=== PATIENT | male | born 1955 | race Caucasian/White ===

== ENCOUNTER 2023-08-11 08:25 | Inpatient (IN) | payer MEDICARE, SELFPAY ==
[2023-08-11] VITALS (10 sets, daily range): BP systolic 122–157; BP diastolic 39–67; BMI 26.0
--- NOTE | 2023-08-11 09:53 | HPS.HSE ---
Family Physician
-
Family Physician: None
Video Systems Engineer: None
Chief Complaint
-
Shortness of breathe
History of Present Illness
68-year-old male with past medical history of PAD status post right lower extremity grafting in 2014 presented initially to [facility] with shortness of breath, dry cough, lower extremity edema, and fatigue. He states that the dyspnea has
been associated with a nonproductive cough and has been intermittent ever since a COVID infection last year however it has been worsening in the past several weeks and that is why he went to the hospital. While at [facility] they did an
echocardiogram which showed severe AR with moderate aortic stenosis and a dilated ascending thoracic aorta of 6.1 cm. At that time his left ventricular ejection fraction was 40% with global LV hypokinesis and prominent apical hypokinesis. Patient
also received a right and left heart cath. At the time of the right heart cath cardiac output was 4.2 L/min and cardiac index was 1.92 L/min/m�, wedge was 17 mmHg, PA pressure was 34/8 with a mean of 23, RA pressure was 10. Incidentally there was
a 90% stenosis of the right axillary artery found and the left heart cath did not reveal significant coronary artery disease. Patient was transferred to [facility] for CT surgery evaluation.
Medical History
Past Medical History
Past Medical History: Reports Other
Additional Past Medical History:
PAD s/p right lower extremity grafting by Dr. David Mckeon in 2014
Past Surgical History: Reports Other
Social History
Tobacco: Former Smoker (quit in 2015 ('5 tiny cigerettes a day'))
Alcohol: Daily (3/day)
Drug: Former User (marijuana as a kid)
Personal:
Living: With Family
Employment: Retired
Family History
Family History: Cancer
Allergies / Home Medications
Allergies reflects when Allergies were last updated in [employer].
Home Medications with original date entered in [employer]
Allergy/Medication List:
none.
Review of Systems
-
History Source: Patient
Constitutional: Reports Weight Gain and Fatigue
Respiratory: Reports Cough
Cardiac: Reports No Symptoms
Musculoskeletal: Reports Edema
Skin: Reports No Symptoms
Neurological: Reports No Symptoms
Endocrine: Reports No Symptoms
Hematologic/Lymphatic: Reports No Symptoms
Psych: Reports No Symptoms
Physical Exam
Vital Signs
Vital Signs
Temp Resp Pulse Ox
97.2 F 18 98
08/11/23 08:37 08/11/23 08:37 08/11/23 08:37
Physical Exam
General: Well Developed and Well Nourished
HEENT: NormoCephalic, PERRLA and [place] Conjunctivae
Respiratory: Clear
Cardiac: S1/S2
Breast: Deferred by me
GI: Soft and Non Tender
Rectal: Deferred by Provider
Genito-urinary: Deferred by me
Musculoskeletal: Edema, Left Lower Extremity and Edema, Right Lower Extremity
Skin: Warm and Dry
Neuro: AO x 3
Hematologic/Lymphatic: No Lymphadenopathy
Psych: Calm
Impression/Plan
-
IMPRESSION:
68-year-old male with past medical history listed above was found to have severe aortic insufficiency and was transferred to [facility] for CT surgery evaluation.
PLAN:
# Severe aortic regurgitation
-Patient's case will be discussed with attending physician. Further details regarding surgical timing intervention will be determined after attending physicians full evaluation.
-Routine preoperative cardiothoracic surgery orders will be initiated.
-STS risk stratification score will be calculated after preoperative testing is complete
# Right subclavian artery stenosis
-Currently asymptomatic
-Will assess bilateral blood pressures
-Low threshold for vascular consult
[2023-08-11 10:51] LABS: % Basophils 1.2 % (0-2); % Eosinophils 1.3 % (0-6); % Immature Granulocytes 0.3 % (0-0.5); % Lymphocytes 19.9 % (20.5-51.1); % Monocytes 7.5 % (1.7-9.3); % Neutrophils 69.8 % (42.2-75.2); Absolute Basophils 0.1 10^3/uL (0-0.2); Absolute Eosinophils 0.1 10^3/uL (0-0.7); Absolute Lymphocytes 1.5 10^3/uL (1.2-3.4); Absolute Monocytes 0.6 10^3/uL (0.1-0.6); Absolute Neutrophils 5.4 10^3/uL (1.4-6.5); Hemoglobin 14.4 g/dL (13.0-18.0); Mean Corp Hgb Conc. 34.3 g/dL (33.0-37.0); Mean Corpuscular Hgb 30.8 pg (27.0-31.0); Mean Corpuscular Volume 89.7 fL (80.0-94.0); Mean Platelet Volume 9.4 fL (7.4-10.4); Nucleated Red Blood Cells % 0 % (-); Platelet Count 247 10^3/uL (130-400); Red Blood Cell Count 4.68 10^6/uL (4.70-6.10); Red Cell Dist. Width 14.1 % (11.5-14.5); White Blood Cell Count 7.7 10^3/uL (4.8-10.8)
[2023-08-11 10:56] LABS: APTT 25.2 Sec (23.4-35.0); INR 1.11; PT 14.4 Sec (11.4-14.6)
[2023-08-11 11:01] LABS: ALT (SGPT) 55 U/L (0-50); AST (SGOT) 38 U/L (17-59); Albumin 4.3 g/dl (3.5-5.0); Alkaline Phosphatase 85 U/L (38-126); Blood Urea Nitrogen 30 mg/dl (9-20); Calcium 9.6 mg/dl (8.4-10.2); Carbon Dioxide 27 mmol/L (22-30); Chloride 103 mmol/L (98-107); Estimated Creatinine Clearance 41 ml/min; Glucose 106 mg/dl (70-99); Magnesium 2.1 mg/dl (1.6-2.3); Potassium 3.7 mmol/L (3.5-5.1); Sodium 135 mmol/L (135-145); Total Bilirubin 1.5 mg/dl (0.2-1.3); Total Protein 6.9 g/dl (6.3-8.2); eGFR 37.95
--- NOTE | 2023-08-11 13:30 | CM ---
Reviewed chart. Met with and Mrs. Nair and his daughter to review discharge plans. He states prior to admission he resides with his spouse in a one story home with three steps to enter. He states prior to admission he was independent with
ambulation and adls. He stats he does not have any DME in the home. He states he does not have a prescription plan. Medical work-up in progress. The discharge plan is to return home with his spouse and a home visit by the Cardiothoracic
Transitional Care Nurse when medically stable.
--- NOTE | 2023-08-11 13:30 | CON.CAR ---
Addendum entered and electronically signed by Ervin Valencia MD 08/11/23 14:04:
correction below . I reviewed the echo images. valve appears trileaflet but may have fusion of the left and NCC leaflets.
Original Note:
Consultation
Consultation Request
Date/Time Consultation Requested: 08/11/2023 1330
Date/Time Consultation Performed: 08/11/2023 1330
Requesting Provider: Dr. Pulido
Performing Provider: Dr. Valencia
Reason for Consultation: /AR
Medical History
-
History of Present Illness:
68-year-old male who presents as a transfer from [facility]. Patient is a history of peripheral arterial disease. He presented with shortness of breath and CHF. Patient has noted to have moderate to severe aortic regurgitation, moderate aortic stenosis,
bicuspid aortic valve, cardiomyopathy with ejection fraction 40 to 45% and ascending aortic aneurysm 6.1 cm. Transferred for cardiothoracic surgery. Patient under the care of Dr. Pulido. Of note patient had cardiac catheterization and reportedly
has no obstructive coronary artery disease
Past medical history
Peripheral arterial disease and previous right lower extremity
Revascularization
Smoking. Quit in 2014
ECG sinus rhythm LVH, IVCD borderline first-degree block
CT of the chest had soft tissue attenuation nodule in the left kidney measuring 2 cm which may represent mass versus proteinaceous cyst. Correlation with ultrasound or MRI recommended predominant right-sided pericardial effusion coronary
calcification right upper lobe lung nodule mild bilateral lower lobe bronchiectasis small left pleural effusion aneurysm of the thoracic aorta 6 x 6.3 cm
Cardiac catheterization/ PA pressure 17 cardiac output 4.2 index 1.92 PA pressure 34/8 mean aortic gradient 14.6 calculated aortic valve area 1.45 ventriculogram not performed 97% stenosis of the right axillary artery no significant coronary
artery disease
Past Medical History
Past Medical History: Other (As noted above)
Social History
Tobacco: Former Smoker
Family History
Family History: CAD (Negative for CAD)
Allergies / Home Medications
Allergy/AdvReac Type Severity Reaction Status Date / Time
No Known Allergies Allergy Verified 08/11/23 09:33
�Medication �Instructions �Recorded �Confirmed �Type
No Meds [No Current Medications] 08/11/23 08/11/23 History
Review of Systems
-
All other systems: Negative unless noted
Physical Exam
Vital Signs
Temp Pulse Resp BP Pulse Ox
97.2 F 65 18 157/56 98
08/11/23 08:37 08/11/23 11:45 08/11/23 08:37 08/11/23 08:32 08/11/23 08:37
Lab Results
08/11/23 10:37
08/11/23 10:37
Physical Exam
General: Well Developed
HEENT: Normocephalic
Respiratory: Clear
Cardiac: Regular Rhythm, Murmur (2/6 systolic murmur. And a low pitched diastolic murmur) and Other
GI: Soft, Non Distended, Normal Bowel Sounds and Other (No mass no Passman megaly)
Musculoskeletal: No Clubbing and No Cyanosis
Neuro: Awake, Alert and No Motor Deficits
Hematologic/Lymphatic: No Lymphadenopathy
Impression / Plan
-
Left heart failure. Patient admitted to [place] with left heart failure and was noted to have cardiomyopathy with ejection fraction 40 to 45%, moderate to severe aortic regurgitation and moderate aortic stenosis
-Respiratory status currently stable. Continue current therapies patient\\
.
Aortic valve disease. Patient with bicuspid aortic valve combination of aortic regurgitation, aortic stenosis. In addition patient has thoracic aortic aneurysm.
-Patient being evaluated for aortic valve replacement and treatment of aneurysm.
.
Thoracic aortic aneurysm 6.[address] surgery evaluation
.
Nonischemic cardiomyopathy. Ejection fraction 40 to 45%
PAD. Patient with history of PAD and also noted to have right axillary stenosis when he underwent catheterization.
Data Reviewed
-
EKG: Tracing Personally Visualized and interpreted and Report Reviewed by me
Radiology: Report Reviewed by me
Ultrasound: Report Reviewed by me
MRI: Report Reviewed by me
Medical Tests (Nuc Med, Echo etc): Report Reviewed by me
Labs: Labs Reviewed by me and Discussed with Physician
[2023-08-11 14:33] LABS: Glycohemoglobin (HgbA1c) 5.6 % (4.0-5.6)
[2023-08-11] MEDS: COREG 6.25 MG PO (19:46)
--- NOTE | 2023-08-11 22:20 | PTCARENOTE ---
POC discussed Pt verbalized understanding. VSS- ambulating as a self. SR w/ first degree and BBB. no complaints of SOB or CP. Call gallegos within reach.
[2023-08-12] VITALS (8 sets, daily range): BP systolic 139–149; BP diastolic 53–69; BMI 26.2
[2023-08-12 05:24] LABS: Hematocrit 42.9 % (39.0-52.0); Hemoglobin 14.4 g/dL (13.0-18.0); Mean Corp Hgb Conc. 33.6 g/dL (33.0-37.0); Mean Corpuscular Volume 92.3 fL (80.0-94.0); Mean Platelet Volume 9.2 fL (7.4-10.4); Platelet Count 233 10^3/uL (130-400); Red Blood Cell Count 4.65 10^6/uL (4.70-6.10); Red Cell Dist. Width 13.7 % (11.5-14.5); White Blood Cell Count 7.5 10^3/uL (4.8-10.8)
--- NOTE | 2023-08-12 05:26 | W.PN.CT ---
Addendum entered and electronically signed by Franck Pulido MD 08/12/23 08:26:
CARDIAC SURGERY ATTENDING:
I had a long conversation with Mr. Nair and his family at bedside. We discussed his pathology, the proposed operative interventions, the associated operative risks [including, but not limited to, , stroke, ND, PPM requirement, arrhythmia,
pneumonia, NERY/F, bleeding, and infection], the expected in-hospital postoperative course, and expected outpatient recovery. All questions were answered to the best of my abilities. We also discussed the natural history of structural valve
deterioration.
Given his baseline CKD with creatinine of 1.9 (down to 1.8 today) only a noncontrast chest CT has been obtained. Based on available imaging it is not clear whether he will require a full aortic root/ascending replacement or if an AVR with
concurrent ascending replacement will be sufficient. Final decision will be based on intraoperative JEREMIAH and visual assessment of his aortic root size. A biologic AVR will be utilized. His distal ascending aorta and aortic arch are not aneurysmal,
and there appears to be adequate distal ascending aorta to allow for replacement without the need for the DHCA.
Preoperative workup is ongoing. His case has been tentatively scheduled for this coming 08/15/2023.
Original Note:
Today's Communication / Plan
-
-pt has no complaints, ambulates without difficulty
-fluid status appears stable at this time. No sob or edema
-workup for AVR/Asc Ao root replacement is ongoing
-no drips
-tentative plan for OR on Tuesday with Dr. Pulido
Assessment / Plan
-
IMPRESSION:
-68-year-old male with past medical history listed above was found to have severe aortic insufficiency/mod and dilated Asc Ao 6.1 cm and was transferred to [facility] on 08/[address] surgery evaluation.
-left ventricular ejection fraction was 40% with global LV hypokinesis and prominent apical hypokinesis.
-s/p right and left heart cath. Cardiac output was 4.2 L/min and cardiac index was 1.92 L/min/m�, wedge was 17 mmHg, PA pressure was 34/8 with a mean of 23, RA pressure was 10. Incidentally there was a 90% stenosis of the right axillary artery
found and the left heart cath did not reveal significant coronary artery disease.
-PAD, R subclavian artery stenosis
-RLE grafting 2014
-Covid 2022
-Dental caries and hardware noted on Panelipse 08/11/23
Discussed patient care with: Nursing and Care Team
Subjective
-
Date of Service: August 12, 2023
Objective Data
-
PT 14.4 Sec (11.4-14.6) 08/11/23 10:37
INR 1.11 08/11/23 10:37
APTT 25.2 Sec (23.4-35.0) 08/11/23 10:37
Vital Signs
Vital Signs
Temp Pulse Resp BP Pulse Ox
98.2 F 64 20 132/47 98
08/11/23 23:32 08/11/23 22:00 08/11/23 23:32 08/11/23 23:34 08/11/23 23:32
SaO2: 98
Physical Exam
-
General: Awake and AOx3
Cardiovascular: Regular rate & rhythm and Murmur (2/6 systolic @ lsb)
Respiratory: Clear
Extremities: No Edema
Abdomen: soft, nontender, nondistended
Data Reviewed
-
Lab Results: Results Reviewed
Medications: Active Meds Reviewed
Chest X-Ray: Report Reviewed and Image Reviewed
ECG: Report Reviewed and Image Reviewed
[2023-08-12 05:33] LABS: PT 14.2 Sec (11.4-14.6)
[2023-08-12 05:34] LABS: APTT 26.9 Sec (23.4-35.0)
[2023-08-12 05:49] LABS: ALT (SGPT) 43 U/L (0-50); AST (SGOT) 35 U/L (17-59); Albumin 4.1 g/dl (3.5-5.0); Alkaline Phosphatase 81 U/L (38-126); Blood Urea Nitrogen 30 mg/dl (9-20); Calcium 9.5 mg/dl (8.4-10.2); Carbon Dioxide 25 mmol/L (22-30); Chloride 99 mmol/L (98-107); Direct Bilirubin 0.4 mg/dl (0.0-0.4); Estimated Creatinine Clearance 43 ml/min; Glucose 106 mg/dl (70-99); Potassium 3.7 mmol/L (3.5-5.1); Sodium 135 mmol/L (135-145); Total Bilirubin 1.2 mg/dl (0.2-1.3); Total Protein 6.7 g/dl (6.3-8.2); eGFR 40.49
[2023-08-12] MEDS: COREG 6.25 MG PO ×2 (09:06→20:42)
[2023-08-12] MEDS: LOW STRENGTH ASPIRIN 81 MG PO (09:06)
[2023-08-12] MEDS: NORVASC 2.5 MG PO (09:10)
--- NOTE | 2023-08-12 09:34 | PTCARENOTE ---
Pt c/o 2 out of 10 'chest ache' since this morning. Pt states that he finds it difficult to take a deep breath. VSS. Will notify
--- NOTE | 2023-08-12 10:36 | W.PN.OMFS ---
Today's Communication
-
XXX
Assessment / Plan
-
PATIENT IS CLEARED FOR VALVULAR HEART SURGERY
NO ACUTE DISEASE
MUST, MUST FOLLOW WITH A OMFS AFTER VALVE REPLACEMENT FOR DIRECTED RX IWTH APPROPRIATE ANTIBIOTIC COVERAGE.
THIS WAS REVIEWED WITH PATIENT
FORMAL CONSULT DICTATED
RICHARD CARBAJAL, ZACHERY
OMFS [id number]
Subjective Data
-
OMFS EVAL FOR DENTAL CLEARANCE FOR AORTIC VALVE SURGERY
Objective Data
-
Vitals, I&O and Lab Results:
Vital Signs
Temp Pulse Resp BP Pulse Ox
97.8 F 69 18 149/66 97
08/12/23 06:43 08/12/23 09:10 08/12/23 06:43 08/12/23 09:10 08/12/23 06:43
Intake and Output
08/11/23 08/12/23 08/13/23
06:59 06:59 06:59
Intake Total 480 / 480
Balance 480 / 480
Intake:
Oral fluids 480 / 480
Other:
Number of approximated MODERATE 2
amounts of urine
Lab Data
08/12/23 05:00
08/12/23 05:00
Plt Count 233 10^3/uL (130-400) 08/12/23 05:00
Physical Exam
-
MULTIPLE CARIOUS TEETH
PERIODONTAL AND PERIAPICAL CHRONIC DISEASE ON ABDALLA
NO ACUTE EVIDENCE OF DISEASE
NO PAIN, PURULENCE, SWELLING, FEVER
PANORAMIC RADIOGRAPH CONFIRMS FINDINGS
--- NOTE | 2023-08-12 10:40 | CM ---
Reviewed chart. Met with and Mrs. Nair to review discharge plans. Prior to admission he resides with his spouse in a one story home with three steps to enter. Prior to admission he was independent with ambulation and adls. He does not
have any DME in the home. He does not have a prescription plan. His spouse will be home to assist in his care if needed. Medical work-up in progress. The discharge plan is to return home with his spouse and a home visit by the Cardiothoracic
Transitional Carre Nurse when medically stable.
We reviewed pre-op and post-op routines. We briefly reviewed the shower instructions. We also reviewed sternal precautions and driving restrictions. He has the Cardiothoracic Surgery Educational Booklet. We discussed a home visit by the
Cardiothoracic Transitional Care Nurse. He is agreeable to a home visit. The plan is to for AVR on Tuesday.
[2023-08-12 10:57] LABS: Urine Albumin Trace (Neg - Trace); Urine Bilirubin 1+ (Negative); Urine Character Clear (Clear); Urine Color Yellow; Urine Glucose Negative (Negative); Urine Ketone Trace (Negative); Urine Leukocyte Negative (Negative); Urine Nitrite Negative (Negative); Urine Occult Blood Negative (Negative); Urine Urobilinogen 2+ (Neg - 1+)
--- NOTE | 2023-08-12 12:46 | W.PN.CD ---
Today's Communication / Plan
-
Patient is ambulating in hallway without complaints of increased shortness of breath. He does have a dry cough. No orthopnea or edema.
Check chest x-ray. May consider additional use of diuretic.
Continued preoperative assessment by CT surgery.
Monitor creatinine
Impression / Plan
-
Left heart failure. Patient admitted to [place] with left heart failure and was noted to have cardiomyopathy with ejection fraction 40 to 45%, moderate to severe aortic regurgitation and moderate aortic stenosis
-Respiratory status currently stable.
-Dry cough.
-Check chest x-ray. May consider additional diuretic
.
Aortic valve disease. Patient with bicuspid aortic valve combination of aortic regurgitation, aortic stenosis. In addition patient has thoracic aortic aneurysm.
-Patient being evaluated for aortic valve replacement and treatment of aneurysm.
.
Thoracic aortic aneurysm 6.[address] surgery evaluation
.
Nonischemic cardiomyopathy. Ejection fraction 40 to 45%
PAD. Patient with history of PAD and also noted to have right axillary stenosis when he underwent catheterization.
Renal insufficiency. Creatinine 1.8. Continue to monitor.
Physical Exam
Vital Signs/Labs
Vital Signs
Temp Pulse Resp BP Pulse Ox
97.2 F 68 16 149/66 98
08/12/23 11:14 08/12/23 11:14 08/12/23 11:14 08/12/23 09:10 08/12/23 11:14
08/11/23 08/12/23 08/13/23
06:59 06:59 06:59
Actual Weight 87.6 kg
08/12/23 05:00
08/12/23 05:00
PT 14.2 Sec (11.4-14.6) 08/12/23 05:00
INR 1.10 08/12/23 05:00
APTT 26.9 Sec (23.4-35.0) 08/12/23 05:00
Magnesium 2.1 mg/dl (1.6-2.3) 08/11/23 10:37
Physical Exam
Constitutional: No acute distress
Cardiovascular: Rhythm & rate is regular and Other (2/6 systolic murmur. Low pitched diastolic murmur)
Respiratory: Lungs clear to auscul.
GI: Soft
Neuro/Psych: Alert
Data Reviewed
-
Date of Service: August 12, 2023
EKG: Report Reviewed by me
X-Ray/CT/US/MRI/NUC/PET: Report Reviewed by me
Medical Tests (PFT, Pathology etc): Report Reviewed by me
Labs: Labs Reviewed by me
[2023-08-13] VITALS (8 sets, daily range): BP systolic 145–171; BP diastolic 54–67; BMI 26.4
--- NOTE | 2023-08-13 01:47 | W.PN.CT ---
Addendum entered and electronically signed by Franck Pulido MD 08/13/23 09:05:
OR TUESDAY
Original Note:
Today's Communication / Plan
-
-c/o dry cough- cxr is clear
-follow Cr
-cleared by Dental for valve surgery
-appreciate everyone's input
-tentative plan for OR on 08/14
Assessment / Plan
-
IMPRESSION:
-bicuspid AV with severe aortic insufficiency/mod and dilated Asc Ao 6.1 cm
-non-ischemic cardiomyopathy, LVEF 40-45% with global LV hypokinesis and prominent apical hypokinesis.
-s/p right and left heart cath with no significant CAD. Cardiac output was 4.2 L/min and cardiac index was 1.92 L/min/m�, wedge was 17 mmHg, PA pressure was 34/8 with a mean of 23, RA pressure was 10. Incidentally there was a 90% stenosis of the
right axillary artery found
-PAD, s/p RLE grafting 2014
-Covid 2022
-CKD 3a, Cr 1.8
-dental caries and hardware noted on Panelipse 08/11/23- cleared for valve surgery
-dry cough- cxr ok
Discussed patient care with: Nursing and Care Team
Subjective
-
Date of Service: August 13, 2023
Objective Data
-
Lab Results
08/12/23 05:00
08/12/23 05:00
PT 14.2 Sec (11.4-14.6) 08/12/23 05:00
INR 1.10 08/12/23 05:00
APTT 26.9 Sec (23.4-35.0) 08/12/23 05:00
Vital Signs
Vital Signs
Temp Pulse Resp BP Pulse Ox
98.4 F 56 20 149/54 100
08/12/23 23:10 08/13/23 01:00 08/12/23 23:10 08/12/23 22:33 08/12/23 23:10
CT Intake/Output/Weight
08/12/23 08/12/23 08/13/23
06:59 18:59 06:59
Intake Total 480 / 480
Output Total 300 / 300
Balance 480 / 480 -300 / -300
SaO2: 100
--- NOTE | 2023-08-13 03:05 | PTCARENOTE ---
Pt rec'd at shift change awake,alert denies cp. pt's only complaint is not being able to have a bowel movement which he blames on getting interrupted by family or nursing. Sinus on telemetry. + dry cough noted in beginning of shift only.
--- NOTE | 2023-08-13 08:45 | W.PN.CD ---
Today's Communication / Plan
-
Weight is trending up patient has dry cough. Added Lasix 20 mg today. Monitor renal function.
Check renal profile today and tomorrow and follow creatinine.
Continue to treat hypertension. Reassess blood pressure after morning meds if still elevated would give additional amlodipine.
Impression / Plan
-
Left heart failure. Patient admitted to [place] with left heart failure and was noted to have cardiomyopathy with ejection fraction 40 to 45%, moderate to severe aortic regurgitation and moderate aortic stenosis
-Respiratory status currently stable.
-Dry cough.
-Check chest x-ray. Unremarkable.
-Weight will trend up will give dose of Lasix today. Monitor renal function
.
Hypertension-elevated. Amlodipine was added yesterday. Continue to monitor after morning dose. Can increase to 5 mg daily
.
Aortic valve disease. Patient with bicuspid aortic valve combination of aortic regurgitation, aortic stenosis. In addition patient has thoracic aortic aneurysm.
-Patient being evaluated for aortic valve replacement and treatment of aneurysm.
.
Thoracic aortic aneurysm 6.[address] surgery evaluation
.
Nonischemic cardiomyopathy. Ejection fraction 40 to 45%
PAD. Patient with history of PAD and also noted to have right axillary stenosis when he underwent catheterization.
Renal insufficiency. Creatinine 1.8. Continue to monitor.
Physical Exam
Vital Signs/Labs
Vital Signs
Temp Pulse Resp BP Pulse Ox
98.0 F 66 18 170/54 98
08/13/23 07:30 08/13/23 08:00 08/13/23 07:30 08/13/23 07:57 08/13/23 07:30
08/12/23 08/13/23 08/14/23
06:59 06:59 06:59
Actual Weight 87.6 kg 88.1 kg
08/12/23 05:00
PT 14.2 Sec (11.4-14.6) 08/12/23 05:00
INR 1.10 08/12/23 05:00
APTT 26.9 Sec (23.4-35.0) 08/12/23 05:00
Magnesium 2.1 mg/dl (1.6-2.3) 08/11/23 10:37
Physical Exam
Constitutional: No acute distress
EENT: Anicteric
Cardiovascular: Rhythm & rate is regular
Respiratory: Respiratory effort normal
GI: Soft
Neuro/Psych: Alert
Data Reviewed
-
Date of Service: August 13, 2023
EKG: Report Reviewed by me
X-Ray/CT/US/MRI/NUC/PET: Report Reviewed by me
Medical Tests (PFT, Pathology etc): Image Personally Visualized and interpreted
Labs: Labs Reviewed by me
[2023-08-13] MEDS: NORVASC 2.5 MG PO ×2 (08:58→10:06)
[2023-08-13] MEDS: MIRALAX 17 GRAMS PO (08:58)
[2023-08-13] MEDS: LASIX 20 MG PO (08:58)
[2023-08-13] MEDS: SENOKOT-S 1 TABLET PO (08:59)
[2023-08-13] MEDS: LOW STRENGTH ASPIRIN 81 MG PO (08:59)
[2023-08-13] MEDS: COREG 6.25 MG PO ×2 (08:59→19:24)
[2023-08-13 11:00] LABS: Albumin 3.9 g/dl (3.5-5.0); Blood Urea Nitrogen 28 mg/dl (9-20); Calcium 9.2 mg/dl (8.4-10.2); Carbon Dioxide 20 mmol/L (22-30); Chloride 104 mmol/L (98-107); Estimated Creatinine Clearance 52 ml/min; Glucose 112 mg/dl (70-99); Phosphorus 4.2 mg/dl (2.5-4.5); Potassium 4.3 mmol/L (3.5-5.1); Sodium 132 mmol/L (135-145)
--- NOTE | 2023-08-13 19:34 | PTCARENOTE ---
Pt happy to have a BM. Pt denies any discomfort, resting in bed and walking in halls. Pt reports frequent coughing made worse as he practices incentive spirometry( he states he has had a cough for 6 months). Telemetry shows sinus rhythm.
--- NOTE | 2023-08-13 21:32 | PTCARENOTE ---
Pt received start of shift HR SR w/ BBB. Pt denies any CP, SOB, or lightheadedness/dizziness. Informed to notify RN if any changes, call gallegos within reach.
[2023-08-14] VITALS (8 sets, daily range): BP systolic 137–169; BP diastolic 54–82; BMI 26.5
[2023-08-14 04:18] LABS: Hematocrit 41.9 % (39.0-52.0); Hemoglobin 14.5 g/dL (13.0-18.0); Mean Corp Hgb Conc. 34.6 g/dL (33.0-37.0); Mean Corpuscular Hgb 31.7 pg (27.0-31.0); Mean Corpuscular Volume 91.5 fL (80.0-94.0); Mean Platelet Volume 9.4 fL (7.4-10.4); Platelet Count 213 10^3/uL (130-400); Red Blood Cell Count 4.58 10^6/uL (4.70-6.10); Red Cell Dist. Width 13.5 % (11.5-14.5); White Blood Cell Count 7.2 10^3/uL (4.8-10.8)
[2023-08-14 04:43] LABS: Albumin 4.1 g/dl (3.5-5.0); Blood Urea Nitrogen 29 mg/dl (9-20); Calcium 9.4 mg/dl (8.4-10.2); Carbon Dioxide 27 mmol/L (22-30); Chloride 102 mmol/L (98-107); Estimated Creatinine Clearance 49 ml/min; Glucose 101 mg/dl (70-99); Phosphorus 3.9 mg/dl (2.5-4.5); Potassium 4.3 mmol/L (3.5-5.1); Sodium 134 mmol/L (135-145); eGFR 46.64
--- NOTE | 2023-08-14 06:12 | W.PN.CT ---
Addendum entered and electronically signed by DANNY Buenrostro 08/15/23 15:42:
[facility] QUERY RESPONSE
Transferred with acute systolic heart failure
Addendum entered and electronically signed by Franck Pulido MD 08/14/23 09:29:
I saw and examined the patient.
The PA's note was reviewed and I agree with the note.
Comment:
OR TOMORROW
Original Note:
Today's Communication / Plan
-
-no issues overnight
-dry cough as before, no SOB or nocturnal dyspnea
-hypertensive - Norvasc was increased to 5 mg and started on 20 po Lasix on 08/12
-plans for OR Tuesday
Assessment / Plan
-
IMPRESSION:
-bicuspid AV with severe aortic insufficiency/mod and dilated Asc Ao 6.1 cm
-non-ischemic cardiomyopathy, LVEF 40-45% with global LV hypokinesis and prominent apical hypokinesis.
-s/p right and left heart cath with no significant CAD. Cardiac output was 4.2 L/min and cardiac index was 1.92 L/min/m�, wedge was 17 mmHg, PA pressure was 34/8 with a mean of 23, RA pressure was 10. Incidentally there was a 90% stenosis of the
right axillary artery found
-PAD, s/p RLE grafting 2014
-Covid 2022
-CKD 3a, Cr 1.8
-dental caries and hardware noted on Panelipse 08/11/23- cleared for valve surgery
-dry cough- cxr ok
Discussed patient care with: Nursing and Care Team
Subjective
-
Date of Service: August 14, 2023
Objective Data
-
Lab Results
08/14/23 04:05
08/14/23 04:05
PT 14.2 Sec (11.4-14.6) 08/12/23 05:00
INR 1.10 08/12/23 05:00
APTT 26.9 Sec (23.4-35.0) 08/12/23 05:00
Vital Signs
Vital Signs
Temp Pulse Resp BP Pulse Ox
97.5 F 68 18 169/72 100
08/14/23 03:58 08/14/23 04:00 08/14/23 03:58 08/14/23 03:58 08/14/23 03:58
CT Intake/Output/Weight
08/13/23 08/13/23 08/14/23
06:59 18:59 06:59
Intake Total 180 / 660 480 / 660
Balance 180 / 660 480 / 660
SaO2: 100
Physical Exam
-
General: Awake and AOx3
Cardiovascular: Murmur (2/6 systolic @ Lsb)
Respiratory: Clear
Extremities: No Edema
Data Reviewed
-
Lab Results: Results Reviewed
Chest X-Ray: Report Reviewed and Image Reviewed
ECG: Report Reviewed and Image Reviewed
[2023-08-14] MEDS: LASIX 20 MG PO (07:53)
[2023-08-14] MEDS: COREG 6.25 MG PO ×2 (07:54→20:03)
[2023-08-14] MEDS: LOW STRENGTH ASPIRIN 81 MG PO (07:54)
[2023-08-14] MEDS: NORVASC 10 MG PO (07:57)
--- NOTE | 2023-08-14 09:52 | W.PN.CD ---
Today's Communication / Plan
-
Respiratory status is stable.
Continue treatment of hypertension
Scheduled for surgery for AR/ and aortic aneurysm tomorrow
Impression / Plan
-
Left heart failure. Patient admitted to [facility] with left heart failure and was noted to have cardiomyopathy with ejection fraction 40 to 45%, moderate to severe aortic regurgitation and moderate aortic stenosis
-Respiratory status currently stable.
-Dry cough.
-Check chest x-ray. Unremarkable.
-Weight will trend up. Patient given Lasix yesterday and ordered for today.. Monitor renal function
.
Hypertension-elevated. Amlodipine has been titrated. Will assess response. Can use IV hydralazine if needed for as needed blood pressure control
.
Aortic valve disease. Patient with bicuspid aortic valve combination of aortic regurgitation, aortic stenosis. In addition patient has thoracic aortic aneurysm.
-Patient being evaluated for aortic valve replacement and treatment of aneurysm.
.
Thoracic aortic aneurysm 6.[address] surgery evaluation
.
Nonischemic cardiomyopathy. Ejection fraction 40 to 45%
PAD. Patient with history of PAD and also noted to have right axillary stenosis when he underwent catheterization.
Renal insufficiency. Creatinine 1.8. Continue to monitor.
Physical Exam
Vital Signs/Labs
Vital Signs
Temp Pulse Resp BP Pulse Ox
98.0 F 78 18 163/57 99
08/14/23 06:42 08/14/23 07:54 08/14/23 06:42 08/14/23 07:54 08/14/23 08:04
08/13/23 08/14/23 08/15/23
06:59 06:59 06:59
Actual Weight 88.1 kg 88.5 kg
08/14/23 04:05
08/14/23 04:05
PT 14.2 Sec (11.4-14.6) 08/12/23 05:00
INR 1.10 08/12/23 05:00
APTT 26.9 Sec (23.4-35.0) 08/12/23 05:00
Magnesium 2.1 mg/dl (1.6-2.3) 08/11/23 10:37
Physical Exam
Constitutional: No acute distress
Cardiovascular: Rhythm & rate is regular
Respiratory: Respiratory effort normal
GI: Soft and Non tender
Neuro/Psych: Alert
Data Reviewed
-
Date of Service: August 14, 2023
Medical Tests (PFT, Pathology etc): Report Reviewed by me
Labs: Labs Reviewed by me
--- NOTE | 2023-08-14 17:48 | PTCARENOTE ---
Pt up walking in halls, visiting with family. He denies any discomfort. Telemetry shows sinus rhythm. Plan to transfer to CVICU shortly. CVOR prep tonight.
--- NOTE | 2023-08-14 20:00 | PTCARENOTE ---
report received from previous RN, walking rounds done. pt in chair, AAOX4. pt denies any pain. NSR on monitor, HR 60's. pt hypertensive, Coreg given. POX 98% on room air. PIV intact and patent. clip prep for CVOR done. pt showered w CHG surgical
soap. see worklist for full assessment, VS, and interventions.
[2023-08-14] MEDS: APRESOLINE 10 MG IV (23:09)
--- NOTE | 2023-08-14 23:15 | PTCARENOTE ---
pt continues to be hypertensive. GEOTECHNICAL ENGINEER Cheikh aware. orders received for 10mg IV Hydralazine.
[2023-08-15 06:00] VITALS: BMI 26.1
[2023-08-15] MEDS: MAGNESIUM OXIDE 500 MG PO (06:02)
[2023-08-15] MEDS: PROTONIX 40 MG PO (06:02)
[2023-08-15] MEDS: LOPRESSOR 25 MG PO (06:02)
[2023-08-15] MEDS: BACTROBAN 2% OINTMENT 1 APPLIC NASAL ×2 (06:02→21:05)
[2023-08-15 06:03] VITALS: BP 161/56
--- NOTE | 2023-08-15 06:05 | PTCARENOTE ---
pt continues to be hypertensive this AM. ORACLE APPLICATIONS ANALYST Cheikh aware. pt received 25mg Lopressor PO along with other pre-op meds. no additional orders at this time. 2nd shower w surgical soap completed. pt wiped w CHG cloths. weight obtained.
[2023-08-15 06:56] VITALS: BP 151/57
--- NOTE | 2023-08-15 07:12 | PTCARENOTE ---
Patient transported to the OR with shift mechanic primary nurse. Pt was able to demonstrate an understanding of the procedure today with the teach back method. Pt received by OR nurse and report given.
[2023-08-15 07:43] LABS: ACT+ - POC 115 Seconds (82-134)
[2023-08-15 07:47] LABS: B.E. - POC -1.7 mmol/L; Glucose - POC 96 mg/dl (65-99); HCO3 - POC 22 mmol/L (21-29); Hematocrit - POC 37 % PCV (42-52); Hemodilution- POC No; Hemoglobin Calculated - POC 12.7; Ionized Calcium - POC 1.19 mmol/L (1.12-1.27); O2 Saturation %Calculated-POC 98.6 5 (92-96); PCO2 - POC 35 mmHg (35-45); PO2 - POC 114 mmHg (80-100); Potassium - POC 3.7 mmol/L (3.6-5.0); Sodium - POC 138 mmol/L (135-145); pH - POC 7.42 (7.35-7.45)
--- NOTE | 2023-08-15 08:07 | CM ---
Reviewed chart. Mr. Nair is in the operating room today. Prior to admission he resides with his spouse in a one story home with three steps to enter. Prior to admission he was independent with ambulation and adls. He does not have any DME in
the home. He does not have a prescription plan. His spouse will be home to assist in his care if needed. Medical work-up in progress. The discharge plan is to return home with his spouse and a home visit by the Cardiothoracic Transitional Care
Nurse when medically stable.
[2023-08-15 08:11] LABS: Urine Albumin Trace (Neg - Trace); Urine Bilirubin Negative (Negative); Urine Character Clear (Clear); Urine Color Yellow; Urine Glucose Negative (Negative); Urine Ketone Negative (Negative); Urine Leukocyte Negative (Negative); Urine Nitrite Negative (Negative); Urine Occult Blood Negative (Negative); Urine Specific Gravity 1.015 (<1.030); Urine Urobilinogen 1+ (Neg - 1+); Urine pH 6.5 (5.0-9.0)
[2023-08-15 09:14] LABS: ACT+ - POC 571 Seconds (82-134)
[2023-08-15 10:00] LABS: B.E. - POC 1.2 mmol/L; Glucose - POC 86 mg/dl (65-99); HCO3 - POC 25 mmol/L (21-29); Hematocrit - POC 26 % PCV (42-52); Hemodilution- POC Yes; Ionized Calcium - POC 0.96 mmol/L (1.12-1.27); PCO2 - POC 33 mmHg (35-45); PO2 - POC 587 mmHg (80-100); Potassium - POC 5.6 mmol/L (3.6-5.0); Sodium - POC 136 mmol/L (135-145); pH - POC 7.48 (7.35-7.45)
[2023-08-15 10:07] LABS: ACT+ - POC 763 Seconds (82-134)
[2023-08-15 10:11] LABS: B.E. - POC 0.3 mmol/L; Glucose - POC 90 mg/dl (65-99); HCO3 - POC 23 mmol/L (21-29); Hematocrit - POC 30 % PCV (42-52); Hemodilution- POC Yes; Hemoglobin Calculated - POC 10.2; Ionized Calcium - POC 0.96 mmol/L (1.12-1.27); PCO2 - POC 32 mmHg (35-45); PO2 - POC 414 mmHg (80-100); Potassium - POC 5.3 mmol/L (3.6-5.0); Sodium - POC 136 mmol/L (135-145); pH - POC 7.47 (7.35-7.45)
[2023-08-15 10:45] LABS: B.E. - POC 0.1 mmol/L; Glucose - POC 104 mg/dl (65-99); HCO3 - POC 24 mmol/L (21-29); Hematocrit - POC 34 % PCV (42-52); Hemodilution- POC Yes; Hemoglobin Calculated - POC 11.4; Ionized Calcium - POC 1.03 mmol/L (1.12-1.27); PCO2 - POC 37 mmHg (35-45); PO2 - POC 371 mmHg (80-100); Potassium - POC 5.4 mmol/L (3.6-5.0); Sodium - POC 135 mmol/L (135-145); pH - POC 7.43 (7.35-7.45)
[2023-08-15 10:51] LABS: ACT+ - POC 619 Seconds (82-134)
--- NOTE | 2023-08-15 10:55 | PN.CDI ---
CDI
- -
CDI:
Physician Documentation Request
Admit Date: 08/11/23 08:25
Dear Doctor Ashok/MADI,
Please review the following and provide your response in the progress notes.
Clinical Indicators:
Pt admitted for aortic insufficiency for OR today
Documented per cardiology notes ,' Left heart failure. Patient admitted to [facility] with left heart failure and was noted to have cardiomyopathy with ejection fraction 40 to 45%...'
Pt has been getting 20 mg of PO Lasix since admission
Please provide further specificity regarding the most likely type and acuity of CHF you are evaluating, treating or monitoring.
Acute Systolic CHF
Chronic Systolic CHF
Acute on Chronic Systolic CHF
Other ( please specify)
Use of terms such as suspected, likely, concern for, or probable (associated with a specific diagnosis that is being evaluated, monitored, or treated as if it exists) are acceptable and can be coded in the inpatient setting, when documented at the
time of discharge.
Thank you,
Mari Barnard RN
CDI Specialist
[facility] [facility]
Please use your independent medical judgment in providing your response.
--- NOTE | 2023-08-15 11:03 | PN.CDI ---
CDI
- -
CDI:
Physician Documentation Request
Admit Date: 08/11/23 08:25
Dear Doctor Ashok/MADI,
Please review the following and provide your response in the progress notes.
Clinical Indicators:
Pt admitted for aortic insufficiency for OR today
Sodium labs are as below
08/13/23 08/14/23
10:37 04:05
Sodium 132 L 134 L
Based on the above, could you clarify in the progress notes, the appropriate diagnosis, if significant, that supports the above abnormalities and additional evaluation, monitoring and/or treatment rendered:
Hyponatremia
Abnormal lab value only
Other
Use of terms such as suspected, likely, concern for, or probable (associated with a specific diagnosis that is being evaluated, monitored, or treated as if it exists) are acceptable and can be coded in the inpatient setting, when documented at the
time of discharge.
Thank you,
Mari Barnard RN
CDI Specialist
[place] [facility]
Please use your independent medical judgment in providing your response.
[2023-08-15 11:19] LABS: ACT+ - POC 590 Seconds (82-134)
[2023-08-15 11:22] LABS: Glucose - POC 112 mg/dl (65-99); HCO3 - POC 25 mmol/L (21-29); Hematocrit - POC 31 % PCV (42-52); Hemodilution- POC Yes; Hemoglobin Calculated - POC 10.6; Ionized Calcium - POC 1.03 mmol/L (1.12-1.27); PCO2 - POC 39 mmHg (35-45); PO2 - POC 402 mmHg (80-100); Potassium - POC 5.7 mmol/L (3.6-5.0); Sodium - POC 136 mmol/L (135-145); pH - POC 7.41 (7.35-7.45)
[2023-08-15 11:56] LABS: ACT+ - POC 514 Seconds (82-134)
[2023-08-15 12:00] LABS: B.E. - POC -1.4 mmol/L; Glucose - POC 116 mg/dl (65-99); HCO3 - POC 23 mmol/L (21-29); Hematocrit - POC 32 % PCV (42-52); Hemodilution- POC Yes; Hemoglobin Calculated - POC 10.7; Ionized Calcium - POC 1.05 mmol/L (1.12-1.27); O2 Saturation %Calculated-POC 99.9 5 (92-96); PCO2 - POC 39 mmHg (35-45); PO2 - POC 348 mmHg (80-100); Potassium - POC 5.8 mmol/L (3.6-5.0); Sodium - POC 136 mmol/L (135-145); pH - POC 7.39 (7.35-7.45)
[2023-08-15 12:28] LABS: B.E. - POC -0.2 mmol/L; Glucose - POC 125 mg/dl (65-99); HCO3 - POC 25 mmol/L (21-29); Hematocrit - POC 30 % PCV (42-52); Hemodilution- POC Yes; Hemoglobin Calculated - POC 10.2; Ionized Calcium - POC 1.02 mmol/L (1.12-1.27); O2 Saturation %Calculated-POC 99.9 5 (92-96); PCO2 - POC 40 mmHg (35-45); PO2 - POC 282 mmHg (80-100); Sodium - POC 138 mmol/L (135-145)
[2023-08-15 12:29] LABS: ACT+ - POC 495 Seconds (82-134)
[2023-08-15 13:14] LABS: ACT+ - POC 403 Seconds (82-134)
[2023-08-15 13:14] LABS: B.E. - POC 0.4 mmol/L; Glucose - POC 120 mg/dl (65-99); HCO3 - POC 24 mmol/L (21-29); Hematocrit - POC 31 % PCV (42-52); Hemodilution- POC Yes; Hemoglobin Calculated - POC 10.5; Ionized Calcium - POC 1.15 mmol/L (1.12-1.27); O2 Saturation %Calculated-POC 99.9 5 (92-96); PCO2 - POC 32 mmHg (35-45); PO2 - POC 252 mmHg (80-100); Potassium - POC 5.2 mmol/L (3.6-5.0); Sodium - POC 139 mmol/L (135-145); pH - POC 7.48 (7.35-7.45)
[2023-08-15] MEDS: LASIX PO (13:25)
[2023-08-15] MEDS: LOW STRENGTH ASPIRIN PO (13:25)
[2023-08-15] MEDS: NORVASC PO (13:25)
--- NOTE | 2023-08-15 13:31 | W.PN.UPDATE ---
Update Note
Progress Note Update
HPI: 68-year-old male transferred from [place] to [facility] on 08/11/2023 for surgical evaluation of his moderate aortic stenosis and severe aortic insufficiency. Patient initially presented to [facility] with shortness
of breath, lower extremity edema, fatigue, and dry cough. Cardiac catheterization revealed no significant coronary disease. Right axillary artery stenosis was identified as well as moderate aortic stenosis with severe AI. Patient went to the
operating room on 08/15/[address] Pulido for aortic valve replacement.
IV fluids: 3500
U.O.:� 1300
Cell saver: 1000�
Blood:� 2PRBC, 2FFP, 2 Plts
Wires:� V-wires
Inotropes:� Epi @ 5, Dobut @ 5
Pressors:� Levo @ 6
Sedatives:� Precedex @ 0.5
�
NEURO: sedated on Precedex, pupils +2mm B/L
RESP: #8OT @23cm> 600/60%/14/5. Lungs clear B/L. 2 mediastinal (45cc on arrival) and R pleural (15cc on arrival) chest tubes to -20cm suction. Sanguineous drainage
CV: RRR +S1, S2, no S3, no�rub, no murmur. Dermabond to median sternotomy. RIJ w/Hart locked @ 45cm. PA 40/18; CVP 6; C.O 3.96/CI 1.2
ABD: round, soft, no BS
EXT: no edema, +2/4 DP pulses B/L, no femoral bruit, left radial A-line intact
: Arriaga- slight esme tinged urine
�
A/P: POD #0 s/p Bio-bentall root replacement #25 KONECT RESILIA Aortic Valve Conduit
JEREMIAH: EF�25-30%. Mitral valve mean 6 mmHg. No paravalvular leak. Mild TR.
- wean and extubate
- will need instruction regarding antibiotic prophylaxis for dental and invasive procedures
- keep Epi/Dobutamine overnight with slow wean if tolerated
- ASA for tissue valve
# Non-ischemic cardiomyopathy (HFrEF)
- will need GDMT
�
# acute surgical blood loss anemia-expected
- initial post-op Hb 9.6
- trend CBC
�
�# CKDIIIa (GFR 46)
- trend BMP/UO
# PAD (R axillary stenosis), hx RLE bypass
�- will need ASA/statin for PAD
[2023-08-15 13:54] LABS: ACT+ - POC 109 Seconds (82-134)
[2023-08-15 13:57] LABS: B.E. - POC -6.1 mmol/L; Glucose - POC 169 mg/dl (65-99); HCO3 - POC 20 mmol/L (21-29); Hematocrit - POC 30 % PCV (42-52); Hemodilution- POC Yes; Hemoglobin Calculated - POC 10.3; Ionized Calcium - POC 1.33 mmol/L (1.12-1.27); O2 Saturation %Calculated-POC 99.9 5 (92-96); PCO2 - POC 43 mmHg (35-45); PO2 - POC 348 mmHg (80-100); Potassium - POC 4.7 mmol/L (3.6-5.0); Sodium - POC 140 mmol/L (135-145); pH - POC 7.28 (7.35-7.45)
[2023-08-15] MEDS: ANCEF 10 IV ×2 (14:31)
[2023-08-15] MEDS: TYLENOL PO ×2 (15:11→22:48)
[2023-08-15] MEDS: NEURONTIN PO ×2 (15:11→22:47)
[2023-08-15] MEDS: PACERONE PO ×2 (15:12→22:48)
[2023-08-15 15:29] LABS: B.E. - POC -1.9 mmol/L; Glucose - POC 175 mg/dl (65-99); HCO3 - POC 24 mmol/L (21-29); Hematocrit - POC 29 % PCV (42-52); Hemodilution- POC Yes; Hemoglobin Calculated - POC 9.8; Ionized Calcium - POC 1.09 mmol/L (1.12-1.27); O2 Saturation %Calculated-POC 59.9 5 (92-96); PCO2 - POC 47 mmHg (35-45); PO2 - POC 34 mmHg (80-100); Potassium - POC 4.4 mmol/L (3.6-5.0); Sodium - POC 144 mmol/L (135-145); pH - POC 7.32 (7.35-7.45)
--- NOTE | 2023-08-15 15:31 | W.CVOR.SURPR ---
CVOR Surgeon Immed Pre Op
-
I have examined this patient prior to performance of the scheduled procedure.
The patient's condition is unchanged from the time of the dictated/written History and
Physical and the patient is able to undergo the scheduled procedure.
--- NOTE | 2023-08-15 15:32 | W.IMMPOSTOP ---
Addendum entered and electronically signed by Franck Pulido MD 08/15/23 17:20:
[id number]
Original Note:
Surgical Immed Post Op Note
-
CARDIAC SURGERY OPERATIVE NOTE:
Preoperative Dx:
Acute CHF w/ /AI, ascending & possible root aneurysm, reduced LVEF (LVEF 40% w/ prominent apical hypokinesis)
No sig CAD on LHC, elevated filling pressure
PVD s/p prior RLE bypass
R axillary stenosis
Postoperative Dx:
/AI w/ root & ascending aneurysmal dilation
Cardiomegaly
Post-cardiotomy coagulopathy
Procedures:
1) Median sternotomy
2) Rx of ascending aorta & root
3) Bio-bentall root replacement w/ #25 KONECT RESILIA Aortic Valve Conduit
4) Distal aortic wrap
Surgeon:
Franck Pulido M.D.
Machine Set Up Operator [employer]s:
Wen Zarate P.A.-C.
Anesthesia:
James Roca M.D.
Elena Uribe, C.R.N.A.
Perfusion:
Malcom Salazar, C.C.P.; XC: 174min, CPB 227min
Findings:
Ascending aorta > 6.5cm w/ normal wall thickness but extremely friable tissues
Aortic root 4.5cm w/ effacement of STJ
Trileaflet AVR w/ extensive leaflet calcifications extending into the aortic annulus circumferentially
#25 KONECT RESILIA placed w/ direct reimplantation of LM and RM coronary buttons
Post-CPB coagulopathy requiring transfusion and factor VIIa
Transfusions:
2U PRBC, 2U FFP, 2pk PLT, 5mg Factor VIIa
Implants:
#25mm KONECT RESILIA Aortic Valved Conduit; SN: [id number], Model [id number]
Epicardial V-wires x 2
CT x 3 (mediastinal x 2, right pleural)
Sternal wires x 10
Condition:
GTTS: levo 2, epi 5, dobut 5, precedex 0.5, insulin 1
69 sinus w/ 1AVB, 100/57, 33/15, CVP 20, CI 1.3 (MvO2 was 60%)
Stable/guarded to CVICU
--- NOTE | 2023-08-15 15:40 | CON.INTV ---
Consultation
Consultation Request
Date/Time Consultation Requested: 08/15/2023 - 144
Date/Time Consultation Performed: 08/15/2023 - 1529
Requesting Provider: Alicia DELGADO
Performing Provider: Ry Baires MD
Reason for Consultation: s/p AVR and aortic root replacement
Medical History
-
Chief Complaint: SOB
History of Present Illness:
68-year-old male with a past medical history of PAD s/p right lower extremity grafting in 2014 who presents as a transfer from [facility] due to shortness of breath with cough and severe aortic regurgitation. Patient initially presented to
[facility] with SOB, dry cough, lower extremity edema and fatigue. He had COVID-19 last year and his cough has been worsening since then. An echo performed at [facility] showed severe AI with moderate and a dilated ascending
thoracic aorta of 6.1 cm. EF at that time was 40% with global hypokinesis of the LV and prominent apical hypokinesis. Right and left heart catheterization showed preserved cardiac output with a wedge of 17 and elevated PA pressures with a mean of
23 mmHg. Incidentally there was a 90% stenosis of the right axillary artery found on left heart catheterization which did not reveal significant CAD. Patient transferred here to [facility] for cardiothoracic evaluation. Today patient
underwent median sternotomy with replacement of his aortic root replacement and aortic valve replacement. He did require transfusion of FFP and platelets + 2 units PRBC post-op. Patient underwent procedure with no complications and was transferred
to the CVICU postoperatively for further care. Critical care/pulmonary service is now consulted for additional management/recommendations.
When I saw the patient he was in bed, in no acute distress on SIMV via ETT on settings 14/600/70%/8 breathing at 17 breaths/min with PIP 26 cmH2O and VTe of 545 mL. BP via left radial A-line shows 90/55, heart rate 70, SpO2 93% and PAP 41/21. He
has 2 mediastinal chest tubes and 1 right-sided pleural chest tube. Patient is sedated on Precedex at 0.5mcg/kg/hr, BP supported with epinephrine at 5mcg/min and dobutamine at 5mcg/kg/min.
PMHx: PAD, former tobacco use disorder
PSHx: S/p right lower extremity grafting (2014)
Past Medical History
Past Medical History: Other (Above as per HPI)
Past Surgical History: Other (Above as per HPI)
Social History
Tobacco: Former Smoker (Quick is a 15 - 5 cigarettes a day)
Alcohol: Daily (3 drinks a day)
Drug: Other (Former THC)
Personal:
Living: With Family
Family History
Family History: Cancer
Allergies / Home Medications
Allergies
Allergy/AdvReac Type Severity Reaction Status Date / Time
No Known Allergies Allergy Verified 08/11/23 09:33
Home Medications
�Medication �Instructions �Recorded �Confirmed �Last Taken �Type
No Meds [No Current Medications] 08/11/23 08/11/23 Unknown History
Review of Systems
-
Unable to Obtain full review of systems at this time due to: Patient Intubation
Vitals / Labs / Diagnostic Testing
Vital Signs
Temp Pulse Resp BP Pulse Ox
97.4 F 70 17 151/57 100
08/15/23 17:00 08/15/23 17:30 08/15/23 17:30 08/15/23 06:56 08/15/23 17:30
Lab Data
08/15/23 16:07
Laboratory Results
08/15/23
16:07
PT 12.9
INR 0.99
APTT 29.5
pH 7.37
pCO2 43
pO2 87
HCO3 24.9
O2 Delivery Level
Diagnostic Testing:
Physical Exam
-
HEENT: Normocephalic and Anicteric
Cardiovascular: S1/S2 and Peripheral Edema (Negative)
Respiratory: Wheeze (Negative), Rales (Negative), Rhonchi (Negative), Non-Labored Respirations and Other (ETT in place; mechanical breath sounds heard bilaterally)
GI: Soft, Non Distended and Non Tender
Neurology: Other (Unresponsive/sedated)
Skin: Warm and Dry
General: Chills (Negative) and Sweats (Negative)
Assessment
-
Assessment: 68-year-old male with a past medical history of PAD s/p right lower extremity grafting in 2014 who presents as a transfer from [facility] due to shortness of breath with cough and severe aortic regurgitation. Patient initially
presented to [facility] with SOB, dry cough, lower extremity edema and fatigue. He had COVID-19 last year and his cough has been worsening since then. An echo performed at [facility] showed severe AI with moderate and a dilated
ascending thoracic aorta of 6.1 cm. EF at that time was 40% with global hypokinesis of the LV and prominent apical hypokinesis. Right and left heart catheterization showed preserved cardiac output with a wedge of 17 and elevated PA pressures with
a mean of 23 mmHg. Incidentally there was a 90% stenosis of the right axillary artery found on left heart catheterization which did not reveal significant CAD. Patient transferred here to [facility] for cardiothoracic evaluation. On
08/15/2023, he underwent median sternotomy with replacement of his aortic root replacement and aortic valve replacement. He did require transfusion of FFP and platelets + 2 units PRBC post-op. Patient underwent procedure with no complications and
was transferred to the CVICU postoperatively for further care. Critical care/pulmonary service is now consulted for additional management/recommendations.
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
Impression:
#Severe aortic insufficiency with aortic stenosis s/p aortic valve replacement (POD #0)
#Aortic root aneurysm s/p root replacement (POD #0)
#Anemia
#Hyponatremia
#Former tobacco use disorder
Plan:
Ventilator settings reviewed
FiO2 will be weaned
Maintain SpO2 >90-94%
Minute ventilation will be adjusted
Arterial blood gases will be monitored
Spontaneous breathing trial will be attempted with hopeful extubation after anesthesia/sedation wear off
prn nebulized bronchodilators
Pulmonary artery catheter parameters will be followed
Pressors/antihypertensive/inotropes/diuretics will be provided as needed
Maintain MAP>65
Monitor chest tube output (mediastinal chest tube X2 and right-sided pleural chest tube X1)
Monitor hemoglobin
Monitor platelet count and coags
Transfuse blood product if needed
CT surgery managing chest tubes
Monitor blood sugar with goal BG 140-180mg/dL
Insulin drip per protocol
Replete electrolytes with K>4, Mg>2
Aspiration precautions
VAP prevention protocol
DVT prophylaxis
Early nutrition
Early mobilization
Critical care statement: A total of 42 minutes of critical care time was provided for this patient today. This includes management of ventilator, spontaneous breathing trial, arterial blood gases, pressors, of unstable vital signs, evaluation of the
patient at bedside, reviewing the patient's pertinent medical records including radiographs, microbiology, laboratory evaluations, and discussion with primary team and critical care nursing.
Data:
CXR 08-15-2023: Postoperative chest.
--- NOTE | 2023-08-15 15:56 | W.PN.CD ---
Addendum entered and electronically signed by Milagros Peres MD 08/15/23 16:51:
I saw and examined the patient.
The HUMAN RESOURCES GENERALIST's note was reviewed and I agree with the note.
Comment: He is doing well post op, still intubated. Currently hd stable. Continue current post op plan.
Original Note:
Today's Communication / Plan
-
Follow telemetry
Impression / Plan
-
BACKGROUND: 68M presented to [facility] with SOB. He was found to have moderate to severe aortic regurgitation, bicuspid AV with stenosis, and cardiomyopathy along with thoracic aneurysm > 6cm
Thoracic aortic aneurysm (>6.5cm) & aortic stenosis S/P Bio-bentall root replacement w/ #25 KONECT RESILIA Aortic Valve Conduit & distal aortic wrap
-On dobutamine, levo, & epi
-Post-CPB coagulopathy requiring transfusion and factor VIIa
-EKG sinus with first degree AV block
-Follow telemetry
NICM, HFrEF (EF 40-45%), acute on chronic
-Follow I/Os and daily weight
-GDMT as tolerated post op
Hypertension, follow post op
PAD, chronic
-Prior RLE bypass
-History of PAD and also noted to have right axillary stenosis when he underwent catheterization.
CKD3a, creatinine with improvement, follow
SUBJECTIVE:
Intubated and sedated
Physical Exam
Vital Signs/Labs
Vital Signs
Temp Pulse Resp BP Pulse Ox
98.1 F 59 18 161/56 98
08/15/23 06:03 08/15/23 06:03 08/15/23 06:03 08/15/23 06:03 08/15/23 06:03
08/14/23 08/15/23 08/16/23
06:59 06:59 06:59
Actual Weight 88.5 kg 87.2 kg
PT 14.2 Sec (11.4-14.6) 08/12/23 05:00
INR 1.10 08/12/23 05:00
APTT 26.9 Sec (23.4-35.0) 08/12/23 05:00
Magnesium 2.1 mg/dl (1.6-2.3) 08/11/23 10:37
Physical Exam
Constitutional: No acute distress
EENT: Anicteric and Moist mucous membranes
Cardiovascular: Rhythm & rate is regular, Pedal edema is absent and S1S2 is normal
Respiratory: Lungs clear to auscul.
GI: Soft, Distention absent, Flat, Non tender and Normal bowel sounds
Neuro/Psych: AO x 3
Other: Skin (warm and dry)
Data Reviewed
-
Date of Service: August 15, 2023
EKG: Report Reviewed by me
Labs: Labs Reviewed by me
Old Records: Reviewed
[2023-08-15] MEDS: NSS 500 IV (16:00)
[2023-08-15 16:08] LABS: Glucose - Point of Care 206 mg/dl (70-99)
[2023-08-15 16:18] LABS: PCO2 43 mmHg (35-48); Potassium 4.5 mMOL/L (3.5-5.1); Sodium 141 mMOL/L (136-145)
[2023-08-15 16:20] LABS: B.E. -0.5 mmol/L; HCO3 24.9 mmol/L (21-28); Ionized Calcium 1.11 mMOL/L (1.15-1.33); O2 Saturation % 98.2 % (94-98); PO2 87 mmHg (83-108); pH 7.37 (7.35-7.45)
[2023-08-15 16:22] LABS: Hematocrit 28.9 % (39.0-52.0); Platelet Count 144 10^3/uL (130-400)
[2023-08-15 16:24] LABS: Hemoglobin 9.6 g/dL (13.0-18.0)
[2023-08-15 16:30] LABS: INR 0.99; PT 12.9 Sec (11.4-14.6)
[2023-08-15 16:31] LABS: APTT 29.5 Sec (23.4-35.0)
[2023-08-15 16:35] LABS: Blood Urea Nitrogen 21 mg/dl (9-20); Estimated Creatinine Clearance 52 ml/min; Glucose 185 mg/dl (70-99); Magnesium 2.9 mg/dl (1.6-2.3)
--- NOTE | 2023-08-15 16:45 | PTCARENOTE ---
Pt arrived from CVOR to CVICU at 1600. Pt is intubated/sedated. Remains on Precedex at 0.5mcg/kg/hr. Currently SR HR 72, BP 111/63 MAP 78, PA 45/20, CVP 10, CO 4.19, CI 2.00, SVR 1260. #8 ET tube at 23cm right lip, vent setting 60% FiO2, RR 14, PEEP
5, Pressure support 5, TV 600, pulse oximetry 97%. Oral care completed. Chest tubes x3 in place, no sign of air leak or crepitus, drainage red in color. Temp 97.3, Shauna hugger in place. Hypoactive bowel sounds. Arriaga catheter in place draining
yellow urine. Arriaga care completed. Midsternal incision Aquacel dressing CDI. Right IJ cordis/Linwood-Solo catheter in place at 50cm. Left radial A line in place. Pt remains on Levo 2mcg/min, Dobutamine 5mcg/kg/min, Epi 5mcg/min, and insulin at
6units/hr. Post-op EKG, labs, and x-ray completed.
[2023-08-15 17:05] LABS: Glucose - Point of Care 201 mg/dl (70-99)
[2023-08-15] MEDS: CALCIUM CHLORIDE 10% SYRINGE 50 ML IV (17:10)
[2023-08-15] MEDS: CALCIUM CHLORIDE 10% SYRINGE 50 MG IV (17:10)
--- NOTE | 2023-08-15 17:10 | PTCARENOTE ---
Ionized calcium 1.11, Calcium replaced with 1gm calcium per order.
--- NOTE | 2023-08-15 17:49 | PTCARENOTE ---
Pulse oximetry 97% on 60% FiO2. Respiratory therapist to bedside to adjust FiO2 to 40%, pulse oximetry dropped to 89%. Respiratory therapist increased FiO2 back to 60%, pulse oximetry maintaining around 91%. FiO2 set to 70% and PEEP increased from 5
to 8. Pulse oximetry at this time 100%.
[2023-08-15 18:17] LABS: Glucose - Point of Care 137 mg/dl (70-99)
[2023-08-15 18:58] LABS: Glucose - Point of Care 128 mg/dl (70-99)
[2023-08-15 19:01] LABS: Hematocrit 28.2 % (39.0-52.0); Hemoglobin 9.8 g/dL (13.0-18.0); Platelet Count 153 10^3/uL (130-400)
[2023-08-15] MEDS: ALBUMIN 5% 250 IV (19:32)
[2023-08-15 19:36] LABS: Mixed Venous O2 Saturation 52.6 %
--- NOTE | 2023-08-15 19:57 | PTCARENOTE ---
Received pt from day shift; pt is sedated and intubated S/P aortic valve replacement; NSR on monitor, VSS; heart sounds audible, radial and DP pulses palpable, temp epicardial V-wires present, pacing box turned off, trace JOSHUA, CI is 1.43, CVPA
aware; lungs clear, diminished at b/l bases, spo2 100%, ETT 8.0 @23, ventilated set to SIMV Fio2 @ 60%, TV 600, rate set to 14, PEEP at 8, x2 mediastinal CT and right pleural CT to -20 wall suction, no air leaks, no tidaling, no crepitus; hypoactive
BS x4 quadrants, abdomen soft non tender; pt voiding clear yellow urine via neely catheter; surgical dressings clean dry and intact; right IJ cordis and swan at 50cm, left radial A-line, left PIV, all lines maintained, leveled, and zeroed; insulin,
Levophed, dobutamine, Precedex, and epinephrine are infusing; MVo2 drawn and sent, 250ml of 5% albumin ordered and infusing; will continue to monitor.
[2023-08-15 20:05] LABS: Glucose - Point of Care 109 mg/dl (70-99)
[2023-08-15] MEDS: SENOKOT-S PO (20:20)
[2023-08-15 20:53] LABS: B.E. 0.5 mmol/L; HCO3 24.5 mmol/L (21-28); Ionized Calcium 1.23 mMOL/L (1.15-1.33); O2 Saturation % 98.9 % (94-98); PCO2 36 mmHg (35-48); PO2 112 mmHg (83-108); Potassium 4.3 mMOL/L (3.5-5.1); Sodium 141 mMOL/L (136-145); pH 7.44 (7.35-7.45)
[2023-08-15] MEDS: OFIRMEV 100 IV (21:05)
[2023-08-15 21:39] LABS: HCO3 25.1 mmol/L (21-28); O2 Saturation % 98.8 % (94-98); PCO2 37 mmHg (35-48); PO2 114 mmHg (83-108); pH 7.44 (7.35-7.45)
[2023-08-15 22:02] LABS: Glucose - Point of Care 76 mg/dl (70-99)
[2023-08-15 22:16] VITALS: BP 108/65
[2023-08-15] MEDS: DILAUDID 0.5 MG IV (22:28)
[2023-08-15] MEDS: ANCEF 5 IV (22:47)
[2023-08-15] MEDS: LOW STRENGTH ASPIRIN 81 MG PO (22:47)
[2023-08-15 22:54] LABS: Glucose - Point of Care 111 mg/dl (70-99)
[2023-08-15 23:07] VITALS: BP 122/103
[2023-08-15 23:53] LABS: Glucose - Point of Care 113 mg/dl (70-99)
[2023-08-16] VITALS (23 sets, daily range): BP systolic 94–130; BP diastolic 56–68; BMI 27.2
--- NOTE | 2023-08-16 | PTCARENOTE ---
Pt assessment unchanged; pt resting comfortably in bed; see MAR for pain management; on and off Cardene per order; CI has improved and is greater than 2; call gallegos within reach; will continue to monitor.
[2023-08-16 01:04] LABS: Glucose - Point of Care 116 mg/dl (70-99)
[2023-08-16] MEDS: ROXICODONE 5 MG PO ×4 (01:06→19:19)
[2023-08-16] MEDS: ADRENALIN 250 IV (01:15)
[2023-08-16 02:09] LABS: Glucose - Point of Care 124 mg/dl (70-99)
[2023-08-16 03:05] LABS: Hemoglobin 8.6 g/dL (13.0-18.0); Mean Corp Hgb Conc. 34.4 g/dL (33.0-37.0); Mean Corpuscular Hgb 30.5 pg (27.0-31.0); Mean Corpuscular Volume 88.7 fL (80.0-94.0); Platelet Count 122 10^3/uL (130-400); Red Blood Cell Count 2.82 10^6/uL (4.70-6.10); Red Cell Dist. Width 15.1 % (11.5-14.5)
[2023-08-16 03:49] LABS: Blood Urea Nitrogen 23 mg/dl (9-20); Calcium 8.5 mg/dl (8.4-10.2); Carbon Dioxide 25 mmol/L (22-30); Chloride 112 mmol/L (98-107); Estimated Creatinine Clearance 49 ml/min; Glucose 109 mg/dl (70-99); Magnesium 2.5 mg/dl (1.6-2.3); Potassium 4.3 mmol/L (3.5-5.1); Sodium 140 mmol/L (135-145); eGFR 46.64
[2023-08-16 04:00] LABS: Glucose - Point of Care 114 mg/dl (70-99)
--- NOTE | 2023-08-16 04:00 | PTCARENOTE ---
Pt assessment unchanged; VSS, NSR on monitor; see MAR for pain management; Dobutamine and Epinephrine have only been titrated per CVPA verbal instructions, see Flow sheet for details; CI has improved throughout the night and is now 3.0; per CVPA pt
will remain lined and in bed; Arriaga catheter will remain, order has been changed; AM labs drawn and sent; EKG obtained; CHG bath provided; tele leads and gown changed; call gallegos within reach; will continue to monitor.
[2023-08-16] MEDS: TYLENOL 1000 MG PO ×3 (05:49→21:46)
[2023-08-16] MEDS: ANCEF 5 IV ×2 (05:49→13:52)
[2023-08-16 05:55] LABS: Glucose - Point of Care 120 mg/dl (70-99)
[2023-08-16] MEDS: DOBUTREX 500 MG 250 IV (06:15)
--- NOTE | 2023-08-16 06:31 | W.PN.CT ---
Today's Communication / Plan
-
-pod #1
-CI 2.69, CO 5.63. Drips: Dobut 3, Epi 5, Cardene 2.5, Insulin
-CT output: 2 meds 100/200, R pleur 45/90 in 12/24 hrs
-wean off drips as tolerated
-h/h 8.6/25.0 today (9.8/28.2 on 08/14, 14.5/41.9 preop)
-platelets 122K- follow
-Cr 1.6 (preop 1.5-1.6)- follow
-keep Arriaga while on inotrops (UO 50-75cc/hr)
-holding BB while Dobut/Epi
-current meds (ASA, Amio, Protonix, Gabapentin, Lidocaine patch)
-encourage IS, OOB
Assessment / Plan
-
IMPRESSION:
-s/p Bio-bentall root replacement w/ #25 KONECT RESILIA Aortic Valve Conduit; ascending Ao replacement with 28 mm tube graft, Distal aortic wrap on 08/15/[address] Pulido, pod #1
-Post-CPB coagulopathy requiring transfusion and factor VIIa
-postop JEREMIAH: the valve is well-seated, leaflets are functioning well. Mean gradient 6 mmHg. No perivalvular leak.
Status post ascending aortic replacement with 28 mm tube graft, unremarkable JEREMIAH findings.
The patient on inotrope support, dobutamine and epinephrine, there is still moderate to severe left ventricular systolic dysfunction, along with wall dyssynchrony which is probably due to pacing, EF 25 to 30%.
The right ventricle is less dilated, mild systolic dysfunction.
Mild tricuspid regurgitation. Trace mitral regurgitation.
-severe symptomatic aortic insufficiency/mod and dilated Asc Ao 6.1 cm
-acute systolic CHF
-non-ischemic cardiomyopathy, LVEF 40-45% with global LV hypokinesis and prominent apical hypokinesis.
-s/p right and left heart cath with no significant CAD. Cardiac output was 4.2 L/min and cardiac index was 1.92 L/min/m�, wedge was 17 mmHg, PA pressure was 34/8 with a mean of 23, RA pressure was 10. Incidentally there was a 90% stenosis of the
right axillary artery found
-PAD, s/p RLE grafting 2014
-Covid 2022
-CKD 3a, Cr 1.5-1.9 this admission
-dental caries and hardware noted on Panelipse 08/11/23- cleared for valve surgery
-dry cough- cxr ok
-acute postop blood loss anemia- s/p 2U PRBC
-acute postop coagulopathy - s/p 2U FFP, 2pk PLT, 5mg Factor VIIa
-acute postop thrombocytopenia
-acute postop atelectasis
-acute postop hypovolemia with subsequent hypervolemia
Discussed patient care with: Nursing and Care Team
Subjective
Procedure
-s/p Bio-bentall root replacement w/ #25 KONECT RESILIA Aortic Valve Conduit on 08/15/[address] Pulido
-
Date of Service: August 16, 2023
Objective Data
-
PT 12.9 Sec (11.4-14.6) 08/15/23 16:07
INR 0.99 08/15/23 16:07
APTT 29.5 Sec (23.4-35.0) 08/15/23 16:07
Vital Signs
Vital Signs
Temp Pulse Resp BP Pulse Ox
99.5 F 69 20 115/60 97
08/16/23 02:00 08/16/23 02:06 08/16/23 02:06 08/16/23 02:00 08/16/23 02:06
CT Intake/Output/Weight
08/15/23 08/15/23 08/16/23
06:59 18:59 06:59
Intake Total 250 / 430 425.5 / 1282.9 857.4 / 1282.9
Output Total 485 / 1035 550 / 1035
Balance 250 / 430 -59.5 / 247.9 307.4 / 247.9
SaO2: 97
Physical Exam
-
General: Awake and AOx3
Cardiovascular: Regular rate & rhythm
Sternum: Stable
Incision: Clean, Dry and Intact
Extremities: Other (trace edema b/l. DPs/PTs by Doppler b/l)
Abdomen: soft, nondistended, decreased abdominal sounds
Data Reviewed
-
Lab Results: Results Reviewed
Medications: Active Meds Reviewed
Chest X-Ray: Report Reviewed and Image Reviewed
ECG: Report Reviewed and Image Reviewed
--- NOTE | 2023-08-16 07:30 | W.PN.ANS.POP ---
Anesthesia Post Operative
- Anesthesia Post Op Note
Vital Signs Stable-See Nursing Note: Yes
Airway Patent: Yes
Adequate Pain Control: Yes
Change in Mental Status: No
Current Postoperative Nausea & Vomiting: No
Anesthesia Complications: No
General Anesthetic Recall: No
Unplanned Admission: No
Post Op Hydration Adequate: Yes
--- NOTE | 2023-08-16 08:00 | PTCARENOTE ---
pt received from previous RN, oriented, in bed. SR on the monitor, HR 60s. V wire in place, pacer box off. SBP 120s, Cardene gtt titrated as ordered. PAP 30s-40s/10s, CVP~4-8. CI >2. Dobutamine and Epi gtts titrated as ordered. palpable pulses. pt
on 2LNC, 92-93% POX. lungs diminished. IS encouraged. CTx3, no air leak or crepitus noted. pt abdomen s/n, denies n/v. clears tolerated. sternal incision c/d/i. chest tube site c/d/i. RIJ cordis/swan maintained. L radial [place] flushed, zeroed, and
calibrated. PIV. insulin gtt running per protocol. 1 unit PRBC transfusing as ordered. see worklist for VS, I&O, and assessment.
[2023-08-16 08:23] LABS: Glucose - Point of Care 110 mg/dl (70-99)
[2023-08-16] MEDS: FLEXERIL 5 MG PO ×2 (08:23→16:52)
[2023-08-16] MEDS: SENOKOT-S 1 TABLET PO ×2 (08:23→19:19)
[2023-08-16] MEDS: MAGNESIUM OXIDE 500 MG PO (08:23)
[2023-08-16] MEDS: NEURONTIN 100 MG PO ×3 (08:23→21:46)
[2023-08-16] MEDS: PROTONIX 40 MG PO (08:23)
[2023-08-16] MEDS: LOW STRENGTH ASPIRIN 81 MG PO (08:24)
[2023-08-16] MEDS: BACTROBAN 2% OINTMENT 1 APPLIC NASAL ×2 (08:24→19:18)
[2023-08-16] MEDS: PACERONE 200 MG PO ×3 (08:24→21:46)
[2023-08-16] MEDS: LIDOCAINE 4% PATCH 1 PATCH TOPICAL (08:24)
[2023-08-16 09:26] LABS: Glucose - Point of Care 102 mg/dl (70-99)
[2023-08-16] MEDS: LASIX 40 MG IV (09:33)
[2023-08-16] MEDS: DILAUDID 0.25 MG IV (10:34)
[2023-08-16 10:40] LABS: Glucose - Point of Care 98 mg/dl (70-99)
--- NOTE | 2023-08-16 11:08 | W.PN.INTV ---
Today's Communication / Plan
Recommendations
Up OOB as tolerated
Antitussantswith codeine cough syrup prn
Wean down supplemental oxygen
If unable to wean O2 down to room air then check ambulatory pulse oximetry prior to discharge
Patient now CVICU�telemetry status. Commercial Art Instructor/pulmonary service will now sign off. Please reconsult if there are any additional questions/concerns, or if patient's respiratory status deteriorates.
Assessment
-
Assessment: 68-year-old male with a past medical history of PAD s/p right lower extremity grafting in 2014 who presents as a transfer from [facility] due to shortness of breath with cough and severe aortic regurgitation. Patient initially
presented to [facility] with SOB, dry cough, lower extremity edema and fatigue. He had COVID-19 last year and his cough has been worsening since then. An echo performed at [facility] showed severe AI with moderate and a dilated
ascending thoracic aorta of 6.1 cm. EF at that time was 40% with global hypokinesis of the LV and prominent apical hypokinesis. Right and left heart catheterization showed preserved cardiac output with a wedge of 17 and elevated PA pressures with
a mean of 23 mmHg. Incidentally there was a 90% stenosis of the right axillary artery found on left heart catheterization which did not reveal significant CAD. Patient transferred here to [facility] for cardiothoracic evaluation. On
08/15/2023, he underwent median sternotomy with replacement of his aortic root replacement and aortic valve replacement. He did require transfusion of FFP and platelets + 2 units PRBC post-op. Patient underwent procedure with no complications and
was transferred to the CVICU postoperatively for further care. Critical care/pulmonary service is now consulted for additional management/recommendations.
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
Impression:
#Severe aortic insufficiency with aortic stenosis s/p aortic valve replacement (POD #1)
#Aortic root aneurysm s/p root replacement (POD #1)
#Anemia
#Hyponatremia
#Former tobacco use disorder
Plan:
Tolerated extubation
Titrate O2 flow rate to maintain SpO2 >90-94%
Encourage incentive spirometry
Increase activity
Aspiration precautions
prn nebulized bronchodilators
Pulmonary artery catheter and arterial line will be removed
Pressors have been weaned
Continue to monitor chest tube output (mediastinal chest tube X2 and right-sided pleural chest tube X1)
Follow hemoglobin
Continue to follow platelet count and coags
Transfuse blood products as needed
CT surgery managing chest tubes
Monitor blood sugar with goal BG 140-180mg/dL
Insulin supplementation as needed
Replete electrolytes with K>4, Mg>2
Early nutrition
Early mobilization
DVT prophylaxis
Patient is now CVICU�telemetry status. Commercial Art Instructor/pulmonary service will now sign off. Thank you for allowing us to be involved in the care of this patient. Please reconsult if there are any additional questions/concerns, or if patient's
respiratory status deteriorates.
I personally reviewed the patient's pertinent medical records including radiographs, microbiology, laboratory evaluations, and discussion with primary team, and critical care nursing.
Data:
CXR 08-15-2023: Postoperative chest.
CXR 08-16-2023: Interval removal of endotracheal tube; No pneumothorax.
Subjective Dataa
Subjective Data
Date of Service:
Date of Service: August 16, 2023
Chief Complaint: Commercial Art Instructor Follow Up and Pulmonary Follow Up
Subjective:
Patient seen and evaluated today at bedside. Currently on 4 L/min nasal cannula saturating 95%. He is breathing comfortably. He says he has a cough which is been going on for over a year and it is similar today. He is currently on dobutamine at
1mcg/kg/min. PAP 45/17, heart rate 68, BP 120/60. No acute events reported from overnight.
Review of Systems
General: Other (Negative unless mentioned above)
Objective Data
Data Reviewed
Vital Signs / I&O / Oxygen:
Vital Signs
Temp Pulse Resp BP Pulse Ox
98.1 F 65 18 119/68 98
08/16/23 17:00 08/16/23 18:00 08/16/23 18:00 08/16/23 17:53 08/16/23 18:00
Intake and Output
08/15/23 08/16/23 08/17/23
06:59 06:59 06:59
Intake Total 430 / 430 1574.9 / 1622.7 932.0 / 932.0
Output Total 1365 / 1445 1520 / 1520
Balance 430 / 430 209.9 / 177.7 -588.0 / -588.0
SaO2 [CPAP] 99
SaO2 [SIMV] 99
SaO2 98
Nasal Cannula flow liters per 3
minute
Physical Exam
General: Respiratory Distress (negative), Comfortable, Chills (n) and Sweats (n)
HEENT: Normocephalic, Anicteric and Moist Mucous Membranes
Cardiovascular: S1-S2 and Peripheral Edema (negative)
Respiratory: Wheeze (negative), Crackles (negative), Rhonchi (negative) and Non-Labored Respirations
GI: Soft, Non Distended, Non Tender and Normal Bowel Sounds
Neurology: Awake and Alert
Skin: Warm and Dry
Labs/Micro/Reports
Lab Data
08/16/23 02:59
08/16/23 02:59
Laboratory Results
08/15/23 08/15/23
20:48 21:34
pH 7.44 7.44
pCO2 36 37
pO2 112 H 114 H
HCO3 24.5 25.1
O2 Delivery Level
[2023-08-16 11:10] LABS: Glucose - Point of Care 101 mg/dl (70-99)
--- NOTE | 2023-08-16 12:04 | W.PN.CD ---
Today's Communication / Plan
-
As recovers he will have GDMT added (HF BB, ARNI (or SAMI-i/ARB), MRA, SGLT-I)
Consider predischarge echo
Impression / Plan
-
Background: 68M presented to [facility] with SOB. He was found to have moderate to severe aortic regurgitation, bicuspid AV with stenosis, and cardiomyopathy along with thoracic aneurysm > 6cm
Nonischemic cardiomyopathy (severe AR) with thoracic aortic aneurysm (>6.5cm) & aortic valve disease
-S/P Bio-Bentall root replacement w/ #25 KONECT RESILIA Aortic Valve Conduit & distal aortic wrap
-looks good today
-intraop JEREMIAH
- PRE severe AR, mod-severe LV syst dysfxn
- Post: LVEF 25-30%, RV dilated and hypo, AVR mean 6 and no AI
NICM, HFrEF
- Preop LVEF 40-45%
- Post-op: LVEF 25-30%, RV dilated and hypo, AVR mean 6 and no AI
- For GDMT over time
Hypertension, follow post op
PAD, chronic
-Prior RLE bypass
-History of PAD and also noted to have right axillary stenosis when he underwent catheterization.
CKD3a, creatinine with improvement, follow
Subjective:
Intubated and sedated
Physical Exam
Vital Signs/Labs
Vital Signs
Temp Pulse Resp BP Pulse Ox
98 F 67 18 110/62 92
08/16/23 11:00 08/16/23 11:11 08/16/23 11:11 08/16/23 11:00 08/16/23 11:11
08/15/23 08/16/23 08/17/23
06:59 06:59 06:59
Actual Weight 87.2 kg 90.8 kg
08/16/23 02:59
08/16/23 02:59
PT 12.9 Sec (11.4-14.6) 08/15/23 16:07
INR 0.99 08/15/23 16:07
APTT 29.5 Sec (23.4-35.0) 08/15/23 16:07
Magnesium 2.5 mg/dl (1.6-2.3) H 08/16/23 02:59
Physical Exam
Constitutional: No acute distress
EENT: Anicteric
Cardiovascular: Rhythm & rate is regular and Pedal edema is absent
Respiratory: Respiratory effort normal and Lungs clear to auscul.
GI: Distention absent
Neuro/Psych: AO x 3 and Motor deficits absent
Data Reviewed
-
Date of Service: August 16, 2023
[2023-08-16 12:11] LABS: Glucose - Point of Care 112 mg/dl (70-99)
--- NOTE | 2023-08-16 12:15 | PTCARENOTE ---
pt VSS, Epi gtt titrated off per orders. SUPERVISOR WEBBING aware of hemodynamics. family at bedside. IS encouraged.
--- NOTE | 2023-08-16 12:25 | CM ---
Reviewed chart, Met with Mr and Mrs. Nair yo review discharge plans. He states he is feeling okay. Prior to admission he resides with his spouse in a one story home with three steps to enter. Prior to admissions he was independent with
ambulation and adls. He does not have any DME in the home. He does not have a prescription plan. His spouse will be home to assist in his care. Medical work-up in progress. The discharge plan is to return home with his spouse and a home visit by
the Cardiothoracic Transitional Care Nurse when medically stable.
[2023-08-16 13:56] LABS: Glucose - Point of Care 91 mg/dl (70-99)
[2023-08-16] MEDS: DILAUDID 0.5 MG IV (14:41)
--- NOTE | 2023-08-16 16:05 | PTCARENOTE ---
pt VSS, Dobutamine gtt titrated off. INSURANCE LAW SPECIALIST aware of CI. insulin gtt dc'd per orders.
[2023-08-16 16:12] LABS: Glucose - Point of Care 110 mg/dl (70-99)
[2023-08-16] MEDS: NSS IV (16:33)
--- NOTE | 2023-08-16 18:00 | PTCARENOTE ---
Edilma Jerry dc'nannette per orders. KAY noble. chin noble. pt OOB to chair x2 assist.
[2023-08-16] MEDS: MAGNESIUM OXIDE PO (19:18)
--- NOTE | 2023-08-16 19:57 | PTCARENOTE ---
[facility]; pt sitting in chair comfortably; pt states pain is 8/10, see MAR for pain management; pt is AAOx4; NSR on monitor, VSS; heart sounds audible, radial and DP pulse palpable, trace JOSHUA, temp epicardial V-wires connected to
box, box is turned off; lung sounds diminished at b/l bases, spo2 95% on 4 LNC, x2 mediastinal CT and right pleural CT to -20 wall suction, no air leaks, no tidaling, no crepitus; +bs x 4 quadrants, abdomen soft non tender; pt due to void at 2315
after neely catheter removed; surgical dressing CDI; right IJ cordis and left PIV maintained; call gallegos within reach; will continue to monitor.
[2023-08-17] VITALS (17 sets, daily range): BP systolic 76–163; BP diastolic 54–138; PULSE 71; O2SAT 94–95; BMI 27.4
--- NOTE | 2023-08-17 | PTCARENOTE ---
Pt assessment unchanged; VSS, NSR on monitor; Pt requested to stay the night in the chair, stating he is more comfortably there; On going pain management, see MAR; pt is due to void still. pt attempted to void but was unable, bladder scanned for
55ml, see worklist for more details; call gallegos within reach will continue to monitor.
[2023-08-17] MEDS: ULTRAM 50 MG PO ×2 (00:42→07:25)
[2023-08-17] MEDS: FLEXERIL 10 MG PO (01:32)
[2023-08-17 03:52] LABS: Hematocrit 30.1 % (39.0-52.0); Hemoglobin 9.8 g/dL (13.0-18.0); Mean Corp Hgb Conc. 32.6 g/dL (33.0-37.0); Mean Corpuscular Hgb 30.5 pg (27.0-31.0); Mean Corpuscular Volume 93.8 fL (80.0-94.0); Mean Platelet Volume 10.7 fL (7.4-10.4); Platelet Count 132 10^3/uL (130-400); Red Blood Cell Count 3.21 10^6/uL (4.70-6.10); White Blood Cell Count 15.4 10^3/uL (4.8-10.8)
--- NOTE | 2023-08-17 04:00 | PTCARENOTE ---
Pt assessment unchanged; NSR on monitor, VSS; labs drawn and sent; on going pain management; will continue to monitor.
[2023-08-17 04:50] LABS: Blood Urea Nitrogen 32 mg/dl (9-20); Carbon Dioxide 25 mmol/L (22-30); Chloride 104 mmol/L (98-107); Estimated Creatinine Clearance 32 ml/min; Glucose 121 mg/dl (70-99); Magnesium 2.4 mg/dl (1.6-2.3); Potassium 4.8 mmol/L (3.5-5.1); Sodium 135 mmol/L (135-145); eGFR 28.67
--- NOTE | 2023-08-17 05:34 | W.PN.CT ---
Addendum entered and electronically signed by Franck Pulido MD 08/17/23 06:15:
I saw and examined the patient.
The PA's note was reviewed and I agree with the note.
Comment:
POD#2 s/p Bio-bentall
No major overnight events. Pt. OOB to chair this AM. Looks good. Neely removed between 2pm and 5pm yesterday w/o any void since. Bladder scans overnight w/ 116mL. Afebrile. 68 sinus. 121/76. 92-95% 4L. No gtts. CT: P: 70, M: 10 overnight.
Tolerating PO. Neuro: intact. 15.4>9.8<132; 32/2.4 (23/1.6). CXR: clear w/ cardiomegaly.
- Replace neely, consult urology
- Hold BB
- D/C CTs later today
- ASA, amio
Original Note:
Today's Communication / Plan
-
POD #2
-Tele phase
-h/h 9.8/30 today
-platelets 132K- improving
-Cr 2.4 (preop 1.5-1.6) - follow closely, consider hold lasix today
-neely removed 08/15
-Dobut/Epi off but continuing to hold BB for now
-current meds (ASA, Amio, Protonix, Gabapentin, Lidocaine patch)
-encourage IS, OOB
-dispo planning
Assessment / Plan
-
IMPRESSION:
-s/p Bio-bentall root replacement w/ #25 KONECT RESILIA Aortic Valve Conduit; ascending Ao replacement with 28 mm tube graft, Distal aortic wrap on 08/15/[address] Pulido, pod #2
-Post-CPB coagulopathy requiring transfusion and factor VIIa
-postop JEREMIAH: the valve is well-seated, leaflets are functioning well. Mean gradient 6 mmHg. No perivalvular leak.
Status post ascending aortic replacement with 28 mm tube graft, unremarkable JEREMIAH findings.
The patient on inotrope support, dobutamine and epinephrine, there is still moderate to severe left ventricular systolic dysfunction, along with wall dyssynchrony which is probably due to pacing, EF 25 to 30%.
The right ventricle is less dilated, mild systolic dysfunction.
Mild tricuspid regurgitation. Trace mitral regurgitation.
-severe symptomatic aortic insufficiency/mod and dilated Asc Ao 6.1 cm
-acute systolic CHF
-non-ischemic cardiomyopathy, LVEF 40-45% with global LV hypokinesis and prominent apical hypokinesis.
-s/p right and left heart cath with no significant CAD. Cardiac output was 4.2 L/min and cardiac index was 1.92 L/min/m�, wedge was 17 mmHg, PA pressure was 34/8 with a mean of 23, RA pressure was 10. Incidentally there was a 90% stenosis of the
right axillary artery found
-PAD, s/p RLE grafting 2014
-Covid 2022
-CKD 3a, Cr 1.5-1.9 this admission
-dental caries and hardware noted on Panelipse 08/11/23- cleared for valve surgery
-dry cough- cxr ok
-acute postop blood loss anemia- s/p 2U PRBC
-acute postop coagulopathy - s/p 2U FFP, 2pk PLT, 5mg Factor VIIa
-acute postop thrombocytopenia
-acute postop atelectasis
-acute postop hypovolemia with subsequent hypervolemia
Discussed patient care with: Care Team
Subjective
Procedure
-s/p Bio-bentall root replacement w/ #25 KONECT RESILIA Aortic Valve Conduit on 08/15/[address] Pulido
-
Date of Service: August 17, 2023
Objective Data
-
Lab Results
08/16/23 02:59
08/16/23 02:59
PT 12.9 Sec (11.4-14.6) 08/15/23 16:07
INR 0.99 08/15/23 16:07
APTT 29.5 Sec (23.4-35.0) 08/15/23 16:07
Vital Signs
Vital Signs
Temp Pulse Resp BP Pulse Ox
97.4 F 65 16 119/68 95
08/16/23 19:14 08/16/23 18:00 08/16/23 19:14 08/16/23 17:53 08/16/23 20:00
CT Intake/Output/Weight
08/16/23 08/16/23 08/17/23
06:59 18:59 06:59
Intake Total 1149.4 / 1622.7 932.0 / 1422.0 490 / 1422.0
Output Total 880 / 1445 1520 / 1570 50 / 1570
Balance 269.4 / 177.7 -588.0 / -148.0 440 / -148.0
SaO2: 95
Physical Exam
-
General: Awake, Oriented and AOx3
Cardiovascular: Regular rate & rhythm
Respiratory: Clear and Equal
Sternum: Stable
Incision: Clean, Dry and Intact
Extremities: Edema +1
Data Reviewed
-
Lab Results: Results Reviewed
Medications: Active Meds Reviewed
Chest X-Ray: Image Reviewed
Vital Signs / Labs
-
Vital Signs and Labs:
Temp Pulse Resp BP Pulse Ox
97.8 F 61 16 129/79 97
08/17/23 00:00 08/17/23 01:30 08/17/23 00:00 08/17/23 00:38 08/17/23 01:30
08/17/23 03:24
08/17/23 03:24
08/14/23 08/16/23 08/16/23
09:13 05:54 08:21
WBC
RBC
Hgb
Hct
MCHC
RDW
MPV
BUN
Creatinine
Glucose
Magnesium
POC Glucose 120 H 110 H
Crossmatch IS Only See Detail
08/16/23 08/16/23 08/16/23
09:25 11:09 12:10
WBC
RBC
Hgb
Hct
MCHC
RDW
MPV
BUN
Creatinine
Glucose
Magnesium
POC Glucose 102 H 101 H 112 H
Crossmatch IS Only
08/16/23 08/17/23
16:11 03:24
WBC 15.4 H
RBC 3.21 L
Hgb 9.8 L
Hct 30.1 L
MCHC 32.6 L
RDW 15.0 H
MPV 10.7 H
BUN 32 H
Creatinine 2.4 H
Glucose 121 H
Magnesium 2.4 H
POC Glucose 110 H
Crossmatch IS Only
[2023-08-17] MEDS: TYLENOL 1000 MG PO ×3 (07:12→21:58)
--- NOTE | 2023-08-17 08:00 | PTCARENOTE ---
pt received from previous RN, oriented, OOB in chair. SR on the monitor, HR 60s. V wire in place, pacer box off. SBP 130s. palpable pulses. pt on 2LNC, 93-96% POX. lungs diminished. IS encouraged. CTx3, no air leak or crepitus noted. pt abdomen s/n,
denies n/v. +BS. diet tolerated. [place]aga placed per orders. sternal incision c/d/i. chest tube site c/d/i. RIJ cordis. PIV. see worklist for VS, I&O, and assessment.
--- NOTE | 2023-08-17 08:42 | W.CON.NEPH ---
Consultation
-
Date/Time Consultation Requested: August 17, 2023 7:00 AM
Date/Time Consultation Performed: August 17, 2023 8:30 AM
Requesting Provider: Dr. Pulido
Performing Provider: Dr. Fink
Reason for Consultation: Acute kidney injury
Medical History
-
Chief Complaint: Acute kidney injury
History of Present Illness:
The patient is a 68-year-old male with a past medical history of chronic kidney disease stage IIIb and apparent creatinine baseline of around 1.9. He has a past medical of PAD status post right lower extremity grafting in 2014 presented initially
to [facility] with shortness of breath, dry cough, lower extremity edema, and fatigue. He states that the dyspnea has been associated with a nonproductive cough and has been intermittent ever since a COVID infection last year however it has
been worsening in the past several weeks and that is why he went to the hospital. While at [facility] they did an echocardiogram which showed severe AR with moderate aortic stenosis and a dilated ascending thoracic aorta of 6.1 cm. At that
time his left ventricular ejection fraction was 40% with global LV hypokinesis and prominent apical hypokinesis. Patient also received a right and left heart cath. At the time of the right heart cath cardiac output was 4.2 L/min and cardiac index
was 1.92 L/min/m�, wedge was 17 mmHg, PA pressure was 34/8 with a mean of 23, RA pressure was 10. Incidentally there was a 90% stenosis of the right axillary artery found and the left heart cath did not reveal significant coronary artery disease.
Patient was transferred to [facility] for CT surgery evaluation. The patient underwent aortic root replacement and ascending aortic replacement on 08/15/2023. He was on a prolonged pump time during the procedure. His creatinine is now
escalated from his admission creatinine of 1.9-2.4 and nephrology was asked to see the patient.
Past Medical History
Aortic regurgitation
Chronic kidney disease stage IIIb
Peripheral arterial disease with previous right lower extremity bypass
Nonischemic cardiomyopathy
Hypertension
Social History
Tobacco: Former Smoker
Family History
No CKD
Family History: CAD
Allergies / Home Medications
Allergy/AdvReac Type Severity Reaction Status Date / Time
No Known Allergies Allergy Verified 08/11/23 09:33
�Medication �Instructions �Recorded �Confirmed �Type
No Meds [No Current Medications] 08/11/23 08/11/23 History
Review of Systems
-
History Source: Patient
All other systems: Negative unless noted
Constitutional: No Symptoms
EENT: No Symptoms
Respiratory: Other (Some dyspnea on exertion postoperative)
Cardiac: Other (Postoperative chest disc)
Abdomen/GI: No Symptoms
: No Symptoms and Other (Arriaga)
Musculoskeletal: No Symptoms
Skin: No Symptoms
Neurological: No Symptoms
Endocrine: No Symptoms
Hematologic/Lymphatic: No Symptoms
Physical Exam
Vital Signs
Vital Signs
Temp Pulse Resp BP Pulse Ox
97.8 F 69 18 121/76 97
08/17/23 04:00 08/17/23 08:30 08/17/23 08:00 08/17/23 03:23 08/17/23 07:00
Lab Results
08/17/23 03:24
WBC 15.4 10^3/uL (4.8-10.8) H 08/17/23 03:24
RBC 3.21 10^6/uL (4.70-6.10) L 08/17/23 03:24
Hgb 9.8 g/dL (13.0-18.0) L 08/17/23 03:24
Hct 30.1 % (39.0-52.0) L 08/17/23 03:24
Plt Count 132 10^3/uL (130-400) 08/17/23 03:24
eGFR 28.67 08/17/23 03:24
Phosphorus 3.9 mg/dl (2.5-4.5) 08/14/23 04:05
Albumin 4.1 g/dl (3.5-5.0) 08/14/23 04:05
Physical Exam
General: AOx3, Nontoxic , NAD
HEENT: PERRL, EOMI, Anicteric, Conjunctivae Clear, Ear/Nose Intact, Hearing Normal, Oropharynx Clear/Moist, Dentition Intact, Facial Symmetry, Neck Supple, Neck: Trachea Midline, No JVD and No Thyromegaly, no Bruits
Respiratory: Clear to auscultation, decreased breath sounds to bases bilaterally with normal lung excursion, chest tubes noted
Cardiac: S1/S2 and Regular Rate/Rhythm
Breast: Deferred by me
Abdomen: Soft, Nontender, Nondistended, Normal Bowel Sounds and No Hepatosplenomegaly
Rectal: Deferred by Provider
Genito-urinary: No Costovertebral Tenderness, Arriaga catheter
Extremities: No Clubbing, No Cyanosis and No Edema
Skin: No Rash or open lesions
Neuro: Nonfocal/Grossly Intact, CN II-XII (Intact) and Strength (Musculoskeletal exam 5 out of 5 both upper and lower extremities)
Hematologic/Lymphatic: No Cervical Lymphadenopathy, No Submandibular Lymphadenopathy and No Supraclavicular Lymphadenopathy
Psych: Mood/afflect pleasant, Insight/judgement good and Appropriate
Vascular: plus 1 pedal and radial pulses
Data Reviewed
-
Radiology: Report Reviewed by me (Chest x-ray from 08/17/2023 reviewed sternal wires noted chest tubes noted, no overt CHF)
Medical Tests (Nuc Med, Echo etc): Other (EKG report reviewed from date 08/16/2023 normal sinus rhythm LVH lateral ischemic pattern at 66 bpm)
Labs: Labs Reviewed by me (BMP urinalysis)
Old Records: Requested (To review old BMP)
Assessment/Plan
-
Impression:
NERY
Status post aortic root and valve replacement on 08/15/2023 in setting of aortic regurgitation
Nonischemic cardiomyopathy
Hypertension
Peripheral arterial disease
Plan:
NERY likely prerenally precipitated in setting of prolonged downtime during thoracic aneurysm repair
-Maintain Arriaga catheter
-I suspect patient has longstanding chronic kidney disease due to poorly controlled hypertension
-Obtain urinalysis (bland) and fractional excretion of sodium
-Maintain MAP 65 or greater, patient has been hemodynamically stable postop
-For repeat echo today, will treat volume status accordingly
-Discussed with cardiothoracic surgery
-No acute HD requirement
--- NOTE | 2023-08-17 08:42 | W.PN.CD ---
Today's Communication / Plan
-
TTE
trend Cr
Impression / Plan
-
Background: 68M presented to [facility] with SOB. He was found to have moderate to severe aortic regurgitation, bicuspid AV with stenosis, and cardiomyopathy along with thoracic aneurysm > 6cm
Severe AR with thoracic aortic aneurysm (>6.5cm)
-S/P Bio-Bentall root replacement w/ #25 KONECT RESILIA Aortic Valve Conduit & distal aortic wrap 08/14
-intraop JEREMIAH
- PRE severe AR, mod-severe LV syst dysfxn
- Post: LVEF 25-30%, RV dilated and hypo, AVR mean 6 and no AI
NICM, Acute HFrEF
- Preop LVEF 40-45%
- Post-op: LVEF 25-30%, RV dilated and hypo, AVR mean 6 and no AI
- today with NERY, Cr 2.4
-discussed with CT surgery team: TTE today
-will repeat BMP today prior to any more lasix
-eventual GDMT
Hypertension, monitor post op
PAD, chronic
-Prior RLE bypass
-History of PAD and also noted to have right axillary stenosis when he underwent catheterization.
NERY on CKD3a
Subjective:
No cardiac complaints today.
Physical Exam
Vital Signs/Labs
Vital Signs
Temp Pulse Resp BP Pulse Ox
97.8 F 69 18 121/76 97
08/17/23 04:00 08/17/23 08:30 08/17/23 08:00 08/17/23 03:23 08/17/23 07:00
08/16/23 08/17/23 08/18/23
06:59 06:59 06:59
Actual Weight 90.8 kg 91.4 kg
08/17/23 03:24
PT 12.9 Sec (11.4-14.6) 08/15/23 16:07
INR 0.99 08/15/23 16:07
APTT 29.5 Sec (23.4-35.0) 08/15/23 16:07
Magnesium 2.4 mg/dl (1.6-2.3) H 08/17/23 03:24
Physical Exam
Constitutional: No acute distress
EENT: Moist mucous membranes
Cardiovascular: Rhythm & rate is regular, Systolic murmur absent, Pedal edema present and JVD present
Respiratory: Respiratory effort normal and Lungs clear to auscul.
GI: Soft, Distention absent and Flat
Neuro/Psych: AO x 3
Data Reviewed
-
Date of Service: August 17, 2023
EKG: Tracing Personally Visualized and interpreted (Tele: SR 60s, ventricular triplets)
Labs: Labs Reviewed by me
[2023-08-17] MEDS: PROTONIX 40 MG PO (09:09)
[2023-08-17] MEDS: MAGNESIUM OXIDE 500 MG PO (09:09)
[2023-08-17] MEDS: PACERONE 200 MG PO ×3 (09:09→21:58)
[2023-08-17] MEDS: SENOKOT-S 1 TABLET PO ×2 (09:09→20:00)
[2023-08-17] MEDS: LOW STRENGTH ASPIRIN 81 MG PO (09:09)
[2023-08-17] MEDS: NEURONTIN 100 MG PO ×3 (09:10→21:58)
[2023-08-17] MEDS: BACTROBAN 2% OINTMENT 1 APPLIC NASAL ×2 (09:11→20:00)
[2023-08-17 10:36] LABS: Urine Sodium 6 mmol/L (30-90)
[2023-08-17] MEDS: LASIX 40 MG IV (12:12)
[2023-08-17] MEDS: DOBUTREX 500 MG 250 IV (12:13)
--- NOTE | 2023-08-17 12:30 | PTCARENOTE ---
pt VSS, UA sent. Echo completed. CTs dc'd as ordered, dressing c/d/i. 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 IVP Lasix given as ordered. Dobutamine gtt started as ordered. OOB in chair for lunch.
[2023-08-17] MEDS: LIDOCAINE 4% PATCH TOPICAL (12:51)
[2023-08-17 13:00] LABS: Blood Urea Nitrogen 37 mg/dl (9-20); Calcium 8.7 mg/dl (8.4-10.2); Carbon Dioxide 25 mmol/L (22-30); Chloride 102 mmol/L (98-107); Estimated Creatinine Clearance 34 ml/min; Glucose 140 mg/dl (70-99); Potassium 4.4 mmol/L (3.5-5.1); Sodium 133 mmol/L (135-145); eGFR 30.17
[2023-08-17] MEDS: NSS 500 IV (13:51)
--- NOTE | 2023-08-17 16:05 | CM ---
CM following for DC planning needs.
Patient is POD#2.
Reviewed DC plan for home w/ CT Transitional Care RN.
CM to cont. to follow.
--- NOTE | 2023-08-17 16:15 | PTCARENOTE ---
pt VSS, no changes in assessment. resting between care.
--- NOTE | 2023-08-17 17:54 | PTCARENOTE ---
pt ambulated in hallway, OOB in chair for dinner. IS encouraged.
--- NOTE | 2023-08-17 18:56 | W.PN.UPDATE ---
Update Note
Progress Note Update
Creatinine 1.6>2.4. Arriaga reinserted per Dr. Pulido. Nephrology consulted and suggests NERY d/t pump run/underlying CKDIII. Repeat TTE reported EF 30%. Dobutamine restarted and Lasix 40mg IV given with improved UO (630cc/shift)
--- NOTE | 2023-08-17 20:00 | PTCARENOTE ---
Received pt from [facility]; pt sitting in chair comfortably; pt stated that he is not in pain; pt is AAOx4; NSR on monitor, VSS; heart sounds audible, radial and DP pulse palpable, trace generalized edema, temp epicardial V-wires connected to box,
box is turned off; lung sounds diminished at b/l bases, spo2 95% on 2 LNC; +bs x 4 quadrants, abdomen soft non tender; pt voisinf clear yellow urine via neely catheter; surgical dressing CDI; right IJ cordis and left PIV maintained; dobutamine gtt
infusing; pt assisted back to bed; call gallegos within reach; will continue to monitor.
[2023-08-18] VITALS (31 sets, daily range): BP systolic 107–148; BP diastolic 58–88; PULSE 69; O2SAT 95–96; BMI 27.8
--- NOTE | 2023-08-18 | PTCARENOTE ---
Pt assessment unchanged; NSR on monitor, VSS; pt resting comfortable in bed; call gallegos within reach; will continue to monitor.
[2023-08-18 03:50] LABS: Hematocrit 23.7 % (39.0-52.0); Hemoglobin 8.1 g/dL (13.0-18.0); Mean Corp Hgb Conc. 34.2 g/dL (33.0-37.0); Mean Corpuscular Hgb 30.6 pg (27.0-31.0); Mean Corpuscular Volume 89.4 fL (80.0-94.0); Mean Platelet Volume 10.6 fL (7.4-10.4); Platelet Count 111 10^3/uL (130-400); Red Blood Cell Count 2.65 10^6/uL (4.70-6.10); Red Cell Dist. Width 14.5 % (11.5-14.5)
--- NOTE | 2023-08-18 04:00 | PTCARENOTE ---
Pt assessment unchanged; VSS, NSR on monitor; pt resting comfortably in bed; Labs drawn and sent; call gallegos within reach; will continue to monitor.
[2023-08-18 04:20] LABS: Blood Urea Nitrogen 43 mg/dl (9-20); Calcium 8.2 mg/dl (8.4-10.2); Carbon Dioxide 27 mmol/L (22-30); Chloride 102 mmol/L (98-107); Estimated Creatinine Clearance 41 ml/min; Glucose 114 mg/dl (70-99); Magnesium 2.4 mg/dl (1.6-2.3); Potassium 4.3 mmol/L (3.5-5.1); Sodium 130 mmol/L (135-145); eGFR 37.95
[2023-08-18] MEDS: TYLENOL 1000 MG PO ×3 (05:27→21:36)
--- NOTE | 2023-08-18 05:57 | W.PN.CT ---
Today's Communication / Plan
-
POD #3
-Tele phase
-h/h 8.1/23.7 today
-platelets 111K, down from yesterday 132
-Cr 1.9 - improved from peak 2.4 yesterday (preop 1.5-1.6) - nephro following, input appreciated
-neely removed 08/15 -> replaced for NERY management 08/16 - uop 510/1265 in 1224 hr
-Dobut resumed 08/16, TTE reconfirmed EF 30%
-2L NC, wean as tolerates
-current meds (ASA, Amio, Protonix, Gabapentin, Lidocaine patch) - holding BB
-encourage IS, chest PT
-PT/OT, OOB
-dispo planning
Assessment / Plan
-
IMPRESSION:
-s/p Bio-bentall root replacement w/ #25 KONECT RESILIA Aortic Valve Conduit; ascending Ao replacement with 28 mm tube graft, Distal aortic wrap on 08/15/[address] Pulido, pod #3
-Post-CPB coagulopathy requiring transfusion and factor VIIa
-postop JEREMIAH: the valve is well-seated, leaflets are functioning well. Mean gradient 6 mmHg. No perivalvular leak.
Status post ascending aortic replacement with 28 mm tube graft, unremarkable JEREMIAH findings.
The patient on inotrope support, dobutamine and epinephrine, there is still moderate to severe left ventricular systolic dysfunction, along with wall dyssynchrony which is probably due to pacing, EF 25 to 30%.
The right ventricle is less dilated, mild systolic dysfunction.
Mild tricuspid regurgitation. Trace mitral regurgitation.
-severe symptomatic aortic insufficiency/mod and dilated Asc Ao 6.1 cm
-acute systolic CHF
-non-ischemic cardiomyopathy, LVEF 40-45% with global LV hypokinesis and prominent apical hypokinesis.
-s/p right and left heart cath with no significant CAD. Cardiac output was 4.2 L/min and cardiac index was 1.92 L/min/m�, wedge was 17 mmHg, PA pressure was 34/8 with a mean of 23, RA pressure was 10. Incidentally there was a 90% stenosis of the
right axillary artery found
-PAD, s/p RLE grafting 2014
-Covid 2022
-CKD 3a, Cr 1.5-1.9 this admission
-dental caries and hardware noted on [employer] 08/11/23- cleared for valve surgery
-dry cough- cxr ok
-acute postop blood loss anemia- s/p 2U PRBC
-acute postop coagulopathy - s/p 2U FFP, 2pk PLT, 5mg Factor VIIa
-acute postop thrombocytopenia
-acute postop atelectasis
-acute postop hypovolemia with subsequent hypervolemia
-postoperative NERY on CKD
Discussed patient care with: Care Team
Subjective
Procedure
-s/p Bio-bentall root replacement w/ #25 KONECT RESILIA Aortic Valve Conduit on 08/15/[address] Pulido
-
Date of Service: August 18, 2023
Objective Data
-
Lab Results
08/17/23 03:24
08/17/23 12:17
PT 12.9 Sec (11.4-14.6) 08/15/23 16:07
INR 0.99 08/15/23 16:07
APTT 29.5 Sec (23.4-35.0) 08/15/23 16:07
Vital Signs
Vital Signs
Temp Pulse Resp BP Pulse Ox
97.6 F 71 18 120/86 98
08/17/23 15:22 08/17/23 18:00 08/17/23 15:22 08/17/23 18:00 08/17/23 17:30
CT Intake/Output/Weight
04/24/24 04/24/24 04/25/24
06:59 18:59 06:59
Intake Total 490 / 1422.0 137.5 / 137.5
Output Total 80 / 1600 805 / 805
Balance 410 / -178.0 -667.5 / -667.5
SaO2: 98
Physical Exam
-
General: Awake, Oriented and AOx3
Cardiovascular: Regular rate & rhythm
Respiratory: Clear and Equal
Sternum: Stable
Incision: Clean, Dry and Intact
Extremities: No Edema
Data Reviewed
-
Lab Results: Results Reviewed
Medications: Active Meds Reviewed
Chest X-Ray: Image Reviewed
Vital Signs / Labs
-
Vital Signs and Labs:
Temp Pulse Resp BP Pulse Ox
97.5 F 66 16 131/64 93
08/18/23 04:00 08/18/23 04:00 08/18/23 04:00 08/18/23 04:00 08/18/23 04:00
08/18/23 03:36
08/18/23 03:36
08/14/23 08/17/23 08/17/23
09:13 09:57 12:17
WBC
RBC
Hgb
Hct
Plt Count
MPV
Sodium 133 L
BUN 37 H
Creatinine 2.3 H
Glucose 140 H
Calcium
Magnesium
Urine Sodium 6 L
Crossmatch IS Only See Detail
08/18/23
03:36
WBC 11.0 H
RBC 2.65 L
Hgb 8.1 L
Hct 23.7 L
Plt Count 111 L
MPV 10.6 H
Sodium 130 L
BUN 43 H
Creatinine 1.9 H
Glucose 114 H
Calcium 8.2 L
Magnesium 2.4 H
Urine Sodium
Crossmatch IS Only
--- NOTE | 2023-08-18 07:50 | W.PN.CD ---
Today's Communication / Plan
-
-Reviewed with Dr. Hoang. Patient remains on dobutamine.
-Will be receiving PRBCs with additional diuretic.
-Continue to assess ability to add GDMT as patient recovers from surgery.
-Monitor sodium which is down to 130.. Follow with diuresis.
Impression / Plan
-
Background: 68M presented to [facility] with SOB. He was found to have moderate to severe aortic regurgitation, bicuspid AV with stenosis, and cardiomyopathy along with thoracic aneurysm > 6cm
Severe AR with thoracic aortic aneurysm (>6.5cm)
-S/P Bio-Bentall root replacement w/ #25 KONECT RESILIA Aortic Valve Conduit & distal aortic wrap 08/14
-intraop JEREMIAH
- PRE severe AR, mod-severe LV syst dysfxn
- Post: LVEF 25-30%, RV dilated and hypo, AVR mean 6 and no AI
-In sinus. Not requiring pain at pacing
-Remains on dobutamine
NICM, Acute HFrEF
- Preop LVEF 40-45%
- Post-op: LVEF 25-30%, RV dilated and hypo, AVR mean 6 and no AI
-Reviewed with CT surgery. Patient remains on dobutamine.
-Will be receiving PRBCs with additional diuretic.
-Continue to assess ability to add GDMT as patient recovers from surgery.
Postop anemia. Hemoglobin 8.1 platelet plan for PRBC today.
Hypertension, monitor post op
PAD, chronic
-Prior RLE bypass
-History of PAD and also noted to have right axillary stenosis when he underwent catheterization.
NERY. Acute on chronic. 1.6 preop peaked at 2.4 improved to 1.9
Hyponatremia. Monitor. Sodium down to 130
Subjective:
No cardiac complaints today.
Physical Exam
Vital Signs/Labs
Vital Signs
Temp Pulse Resp BP Pulse Ox
97.5 F 67 16 107/88 91
08/18/23 04:00 08/18/23 07:30 08/18/23 06:00 08/18/23 07:00 08/18/23 07:30
08/17/23 08/18/23 08/19/23
06:59 06:59 06:59
Actual Weight 91.4 kg 92.9 kg
08/18/23 03:36
08/18/23 03:36
PT 12.9 Sec (11.4-14.6) 08/15/23 16:07
INR 0.99 08/15/23 16:07
APTT 29.5 Sec (23.4-35.0) 08/15/23 16:07
Magnesium 2.4 mg/dl (1.6-2.3) H 08/18/23 03:36
Physical Exam
Constitutional: No acute distress
Cardiovascular: Rhythm & rate is regular and Systolic murmur present
Respiratory: Wheeze Absent and Rhonchi Absent
GI: Soft and Non tender
Neuro/Psych: Alert
Data Reviewed
-
Date of Service: August 18, 2023
Medical Decision Making: Reviewed Test Results and Review of Case with other Provider (Dr. Hoang and CT surgery nurse)
Echo: Report Reviewed by me
Medical Tests (PFT, Pathology etc): Report Reviewed by me
Labs: Labs Reviewed by me
[2023-08-18] MEDS: LIDOCAINE 4% PATCH TOPICAL (07:51)
[2023-08-18] MEDS: NEURONTIN 100 MG PO ×3 (07:51→21:36)
[2023-08-18] MEDS: SENOKOT-S 1 TABLET PO ×2 (07:51→19:40)
[2023-08-18] MEDS: PACERONE 200 MG PO ×3 (07:51→21:36)
[2023-08-18] MEDS: LOW STRENGTH ASPIRIN 81 MG PO (07:51)
[2023-08-18] MEDS: PROTONIX 40 MG PO (07:51)
[2023-08-18] MEDS: BACTROBAN 2% OINTMENT 1 APPLIC NASAL ×2 (07:51→19:40)
--- NOTE | 2023-08-18 08:16 | W.PN.NEPH.PH ---
Today's Communication / Plan
-
Follow BMP
Assessment/Plan
-
Impression:
NERY (? baseline 1.5-1.9)
Status post aortic root and valve replacement on 08/15/2023 in setting of aortic regurgitation
Nonischemic cardiomyopathy
Hypertension
Peripheral arterial disease
Plan:
NERY likely prerenally precipitated in setting of prolonged downtime during thoracic aneurysm repair
-Creatinine now down to 1.9 remains nonoliguric with urine output of approximately 1 L
-Maintain Arriaga catheter
-I suspect patient has longstanding chronic kidney disease due to poorly controlled hypertension
-Obtained urinalysis (bland) and fractional excretion of sodium
-Maintain MAP 65 or greater, patient has been hemodynamically stable postop
-Repeat echocardiogram notes EF of 30% with associated RCA and LAD territory wall motion abnormalities moderate to severe concentric LVH well-seated bioprosthetic aortic valve estimated pulmonary pressure 40 mmHg
-Patient now on dobutamine support, suggest continuing IV Lasix (60mg IV given this am)
-Discussed with cardiothoracic surgery
-No acute HD requirement
-
-
Date of Service: August 18, 2023
CC / HPI / ROS
-
Chief Complaint:
Acute kidney injury
History of Present Illness:
Creatinine back to 1.9
Hemodynamically stable on dobutamine
Review of Systems:
Weights up
Nonoliguric
Arriaga
Labs
-
Labs:
WBC 11.0 10^3/uL (4.8-10.8) H 08/18/23 03:36
RBC 2.65 10^6/uL (4.70-6.10) L 08/18/23 03:36
Hgb 8.1 g/dL (13.0-18.0) L 08/18/23 03:36
Hct 23.7 % (39.0-52.0) L 08/18/23 03:36
Plt Count 111 10^3/uL (130-400) L 08/18/23 03:36
Sodium 130 mmol/L (135-145) L 08/18/23 03:36
Potassium 4.3 mmol/L (3.5-5.1) 08/18/23 03:36
Chloride 102 mmol/L (98-107) 08/18/23 03:36
Carbon Dioxide 27 mmol/L (22-30) 08/18/23 03:36
BUN 43 mg/dl (9-20) H 08/18/23 03:36
Creatinine 1.9 mg/dL (0.7-1.3) H 08/18/23 03:36
eGFR 37.95 08/18/23 03:36
Glucose 114 mg/dl (70-99) H 08/18/23 03:36
Calcium 8.2 mg/dl (8.4-10.2) L 08/18/23 03:36
Phosphorus 3.9 mg/dl (2.5-4.5) 08/14/23 04:05
Albumin 4.1 g/dl (3.5-5.0) 08/14/23 04:05
Physical Exam
-
Vital Signs:
Vital Signs
Temp Pulse Resp BP Pulse Ox
97.5 F 67 16 107/88 91
08/18/23 04:00 08/18/23 07:30 08/18/23 06:00 08/18/23 07:00 08/18/23 07:30
Cardiovascular:: Regular rate and rhythm
Respiratory:: Bilateral: Coarse
Lung Excursion:: Normal
Abdomen:: Nontender and Soft
Bowel Sounds:: Normal
Extremity Edema:: None: Bilateral:
Arriaga Catheter: Yes
--- NOTE | 2023-08-18 08:45 | PTCARENOTE ---
Assumed care of patient at 0700. Pt is awake, alert, and oriented. Pt with no complaints of pain at this time. Pt remains SR with HR 60's. BP 126/61 MAP 80. Epicardial V wire in place, pacer currently off. Pulse oximetry 96% on 1L nasal cannula.
Pulse oximetry on room air decreased to 88%. Pt tolerating PO diet. Arriaga catheter in place draining yellow urine. Midsternal incision Aquacel dressing CDI. Right IJ cordis in place with KVO. Pt remains on Dobutamine gtt now at 1mcg/kg/min. Repeat
type and screen obtained. Pt currently OOB in chair resting comfortably with call gallegos within reach.
[2023-08-18] MEDS: LASIX 60 MG IV (12:11)
--- NOTE | 2023-08-18 12:30 | PTCARENOTE ---
Pt ambulated with cardiac rehab in [place]. Pt remains SR with HR 60's. BP 140/69 MAP 91. Pulse oximetry 96% on room air. Pt received IV Lasix, Arriaga remains in place.
[2023-08-18] MEDS: NSS IV (13:34)
--- NOTE | 2023-08-18 14:43 | CM ---
CM following for DC planning needs.
Attempted to meet w patient but patient sleeping soundly.
Reviewed DC plan, anticipate home w/ CT Transitional Care RN.
CM to cont. to follow.
[2023-08-18 17:30] LABS: Hematocrit 28.5 % (39.0-52.0); Hemoglobin 9.7 g/dL (13.0-18.0); Mean Corpuscular Hgb 30.1 pg (27.0-31.0); Mean Corpuscular Volume 88.5 fL (80.0-94.0); Mean Platelet Volume 10.4 fL (7.4-10.4); Platelet Count 138 10^3/uL (130-400); Red Blood Cell Count 3.22 10^6/uL (4.70-6.10); Red Cell Dist. Width 14.6 % (11.5-14.5); White Blood Cell Count 12.4 10^3/uL (4.8-10.8)
[2023-08-18 17:50] LABS: Blood Urea Nitrogen 37 mg/dl (9-20); Calcium 8.5 mg/dl (8.4-10.2); Carbon Dioxide 26 mmol/L (22-30); Chloride 100 mmol/L (98-107); Estimated Creatinine Clearance 49 ml/min; Glucose 111 mg/dl (70-99); Potassium 4.1 mmol/L (3.5-5.1); Sodium 131 mmol/L (135-145); eGFR 46.64
--- NOTE | 2023-08-18 18:20 | PTCARENOTE ---
Bloody urine in CLAIR Arriaga PA aware. Labs obtained. Dobutamine now off per order. Additional dose of Lasix administered per order.
[2023-08-18] MEDS: LASIX 40 MG IV (18:34)
--- NOTE | 2023-08-18 20:45 | PTCARENOTE ---
Assumed care of pt from loli RN. Pt AAOx3. RAI. Following commands appropriately. SR on monitor. HR 70s. Temporary epicardial v-wire intact and insulated. Trace edema throughout. Bilateral radial pulses palpable. Bilateral LE pulses weak on
palpation. BP 130s/60-70s. Pt on RA. POX 95%. Lung sounds diminished at the base. Deep breathing and IS encouraged. Abdomen soft/nontender. Arriaga catheter CDI. Voiding maikol/yellow urine. Sternal Aquacel CDI. CT dressing CDI. Right IJ cordis and PIV
CDI. No c/o pain at this time. See worklist for full nursing assessment, VS, and interventions. Call gallegos within reach.
[2023-08-19] VITALS (14 sets, daily range): BP systolic 115–160; BP diastolic 65–89; PULSE 68; O2SAT 92–97; BMI 27.6
--- NOTE | 2023-08-19 00:21 | PTCARENOTE ---
Previous assessment unchanged. Pt SR on monitor. HR 60s. BP 130-140/60s. RA. POX 92%. All surgical sites stable. Arriaga catheter CDI. No c/o pain at this time. Call gallegos within reach.
[2023-08-19 04:41] LABS: Hematocrit 28.4 % (39.0-52.0); Hemoglobin 9.6 g/dL (13.0-18.0); Mean Corp Hgb Conc. 33.8 g/dL (33.0-37.0); Mean Corpuscular Hgb 29.9 pg (27.0-31.0); Mean Corpuscular Volume 88.5 fL (80.0-94.0); Mean Platelet Volume 10.5 fL (7.4-10.4); Platelet Count 138 10^3/uL (130-400); Red Blood Cell Count 3.21 10^6/uL (4.70-6.10); Red Cell Dist. Width 14.6 % (11.5-14.5); White Blood Cell Count 11.1 10^3/uL (4.8-10.8)
--- NOTE | 2023-08-19 04:47 | PTCARENOTE ---
Pt reassessed. SR on monitor. HR 70s. Temporary epicardial v-wire intact and insulated. RA. POX 95%. Arriaga catheter CDI and draining maikol/yellow urine. All surgical sites stable. No c/o pain at this time. Labs drawn and sent. Call gallegos within
reach.
[2023-08-19 05:06] LABS: Blood Urea Nitrogen 34 mg/dl (9-20); Calcium 8.5 mg/dl (8.4-10.2); Carbon Dioxide 26 mmol/L (22-30); Chloride 99 mmol/L (98-107); Estimated Creatinine Clearance 52 ml/min; Glucose 115 mg/dl (70-99); Magnesium 2.1 mg/dl (1.6-2.3); Potassium 3.7 mmol/L (3.5-5.1); Sodium 132 mmol/L (135-145)
--- NOTE | 2023-08-19 05:56 | W.PN.CT ---
Today's Communication / Plan
-
-pod #4
-no issues overnight
-Cr improving - 1.5 today (peak 2.3 and 1.5 preop)
-diuresed with iv bid Lasix 08/17 (UO 4813/5756)- continue. wt is up 11 lbs from preop
-hypertensive- ?starting Coreg or Toprol (EF 30%)
-encourage IS, OOB, ambulate
Assessment / Plan
-
IMPRESSION:
-s/p Bio-bentall root replacement w/ #25 KONECT RESILIA Aortic Valve Conduit; ascending Ao replacement with 28 mm tube graft, Distal aortic wrap on 08/15/[address] Pulido, pod #4
-Post-CPB coagulopathy requiring transfusion and factor VIIa
-postop JEREMIAH: the valve is well-seated, leaflets are functioning well. Mean gradient 6 mmHg. No perivalvular leak.
Status post ascending aortic replacement with 28 mm tube graft, unremarkable JEREMIAH findings.
The patient on inotrope support, dobutamine and epinephrine, there is still moderate to severe left ventricular systolic dysfunction, along with wall dyssynchrony which is probably due to pacing, EF 25 to 30%.
The right ventricle is less dilated, mild systolic dysfunction.
Mild tricuspid regurgitation. Trace mitral regurgitation.
-severe symptomatic aortic insufficiency/mod and dilated Asc Ao 6.1 cm
-acute systolic CHF
-non-ischemic cardiomyopathy, LVEF 40-45% with global LV hypokinesis and prominent apical hypokinesis.
-s/p right and left heart cath with no significant CAD. Cardiac output was 4.2 L/min and cardiac index was 1.92 L/min/m�, wedge was 17 mmHg, PA pressure was 34/8 with a mean of 23, RA pressure was 10. Incidentally there was a 90% stenosis of the
right axillary artery found
-PAD, s/p RLE grafting 2014
-Covid 2022
-CKD 3a, Cr 1.5-1.9 this admission
-dental caries and hardware noted on [employer] 08/11/23- cleared for valve surgery
-dry cough- cxr ok
-acute postop blood loss anemia- s/p 2U PRBC
-acute postop coagulopathy - s/p 2U FFP, 2pk PLT, 5mg Factor VIIa
-acute postop thrombocytopenia
-acute postop atelectasis
-acute postop hypovolemia with subsequent hypervolemia
-postoperative NERY on CKD
-acute postop hyponatremia
-LVEF 30% by Echo 08/17/23
Discussed patient care with: Nursing and Care Team
Subjective
Procedure
-s/p Bio-bentall root replacement w/ #25 KONECT RESILIA Aortic Valve Conduit on 08/15/[address] Pulido
-
Date of Service: August 19, 2023
Objective Data
-
Lab Results
08/19/23 04:30
08/19/23 04:30
PT 12.9 Sec (11.4-14.6) 08/15/23 16:07
INR 0.99 08/15/23 16:07
APTT 29.5 Sec (23.4-35.0) 08/15/23 16:07
Vital Signs
Vital Signs
Temp Pulse Resp BP Pulse Ox
98.7 F 70 16 160/89 95
08/19/23 04:00 08/19/23 04:00 08/19/23 04:00 08/19/23 04:00 08/19/23 04:00
CT Intake/Output/Weight
08/18/23 08/18/23 08/19/23
06:59 18:59 06:59
Intake Total 650.5 / 800.7 402.4 / 502.4 100 / 502.4
Output Total 590 / 1455 1435 / 2485 1050 / 2485
Balance 60.5 / -654.3 -1032.6 / -1981.6 -950 / -1981.6
SaO2: 95
Physical Exam
-
General: Awake and AOx3
Cardiovascular: Regular rate & rhythm, No Murmurs and No Rub
Respiratory: Decreased Breath Sounds
Sternum: Stable
Incision: Clean, Dry and Intact
Extremities: Edema +1
Abdomen: soft, mildly distended, + bowel sounds, + flatus
Data Reviewed
-
Lab Results: Results Reviewed
Medications: Active Meds Reviewed
Chest X-Ray: Report Reviewed and Image Reviewed
ECG: Report Reviewed and Image Reviewed
[2023-08-19] MEDS: TYLENOL 1000 MG PO ×2 (06:18→14:09)
--- NOTE | 2023-08-19 07:51 | PTCARENOTE ---
Patient received from production shift supervisor resting comfortably oob in chair, AAO X 3, states pain controlled at this time. NSR via cm, SaO2 @ 94% on RA. RIJ Cordis w/kvo infusing. Epicardial V-wire insulated to chest wall. Arriaga catheter to gravity. All
procedural sites stable. Patient updated to plan of care for the day, in agreement. See work list for full assessment and interventions performed.
[2023-08-19] MEDS: LASIX 60 MG IV (08:32)
[2023-08-19] MEDS: NEURONTIN 100 MG PO (08:33)
[2023-08-19] MEDS: LOW STRENGTH ASPIRIN 81 MG PO (08:33)
[2023-08-19] MEDS: PROTONIX 40 MG PO (08:33)
[2023-08-19] MEDS: TOPROL XL 12.5 MG PO (08:33)
[2023-08-19] MEDS: LIDOCAINE 4% PATCH TOPICAL (08:34)
[2023-08-19] MEDS: SENOKOT-S PO (08:34)
[2023-08-19] MEDS: BACTROBAN 2% OINTMENT 1 APPLIC NASAL (08:34)
[2023-08-19] MEDS: PACERONE 200 MG PO (08:34)
--- NOTE | 2023-08-19 10:29 | W.PN.CD ---
Today's Communication / Plan
-
-Continue routine postoperative care as directed by CT Surgery.
-Continue metoprolol succinate; further GDMT limited by renal dysfunction.
Impression / Plan
-
Background: 68M presented to [facility] with SOB. He was found to have moderate to severe aortic regurgitation, bicuspid AV with stenosis, and cardiomyopathy along with thoracic aneurysm > 6cm
Severe AR with thoracic aortic aneurysm (>6.5cm)
-S/P Bio-Bentall root replacement w/ #25 KONECT RESILIA Aortic Valve Conduit & distal aortic wrap 08/14
-intraop JEREMIAH
- PRE severe AR, mod-severe LV syst dysfxn
- Post: LVEF 25-30%, RV dilated and hypo, AVR mean 6 and no AI
-Remains in sinus rhythm.
-Now off of dobutamine.
-Continue routine postoperative care as directed by CT Surgery.
NICM, Acute HFrEF
- Preop LVEF 40-45%
- Post-op: LVEF 25-30%, RV dilated and hypo, AVR mean 6 and no AI
-Continue metoprolol succinate; further GDMT limited by renal dysfunction.
Postop anemia.
-Stable; transfused blood.
Hypertension
-Stable/controlled.
PAD, chronic
-Prior RLE bypass
-History of PAD and also noted to have right axillary stenosis when he underwent catheterization.
NERY. Acute on chronic. 1.6 preop peaked at 2.4 improved.
Hyponatremia.
-Relatively stable.
Subjective:
No major events overnight. No cardiac complaints this a.m.
Physical Exam
Vital Signs/Labs
Vital Signs
Temp Pulse Resp BP Pulse Ox
98.4 F 69 16 133/76 94
08/19/23 07:40 08/19/23 09:30 08/19/23 07:40 08/19/23 08:34 04/26/24 07:50
08/18/23 08/19/23 08/20/23
06:59 06:59 06:59
Actual Weight 92.9 kg 92.3 kg
08/19/23 04:30
08/19/23 04:30
PT 12.9 Sec (11.4-14.6) 08/15/23 16:07
INR 0.99 08/15/23 16:07
APTT 29.5 Sec (23.4-35.0) 08/15/23 16:07
Magnesium 2.1 mg/dl (1.6-2.3) 08/19/23 04:30
Physical Exam
Constitutional: No acute distress and Comfortable
EENT: Anicteric
Cardiovascular: Rhythm & rate is regular, Systolic murmur absent, Pedal edema present (trace) and S1S2 is normal
Respiratory: Respiratory effort normal and Lungs clear to auscul.
GI: Soft
Neuro/Psych: AO x 3
Other: Skin (Warm, dry, intact)
Data Reviewed
-
Date of Service: August 19, 2023
EKG: Tracing Personally Visualized and interpreted (Telemetry: Sinus rhythm)
Echo: Report Reviewed by me (EF 30%)
Medical Tests (PFT, Pathology etc): Discussed with Patient
Labs: Labs Reviewed by me
Critical Care Time (in minutes): 34
--- NOTE | 2023-08-19 11:17 | W.PN.NEPH.PH ---
Today's Communication / Plan
-
follow BMP
Assessment/Plan
-
Impression:
NERY (? baseline 1.5-1.9)
Status post aortic root and valve replacement on 08/15/2023 in setting of aortic regurgitation
Nonischemic cardiomyopathy
Hypertension
Peripheral arterial disease
Plan:
Creatinine is back to baseline
Follow basic metabolic panel
Follow-up bladder scan with Neely removal
Will sign off, please call with questions
-
-
Date of Service: August 19, 2023
CC / HPI / ROS
-
Chief Complaint:
Acute kidney injury
History of Present Illness:
Creatinine back to 1.5
Hemodynamically stable off dobutamine
neely out this am
on lasix for edema
Review of Systems:
Nonoliguric
no CP
Labs
-
Labs:
WBC 11.1 10^3/uL (4.8-10.8) H 08/19/23 04:30
RBC 3.21 10^6/uL (4.70-6.10) L 08/19/23 04:30
Hgb 9.6 g/dL (13.0-18.0) L 08/19/23 04:30
Hct 28.4 % (39.0-52.0) L 08/19/23 04:30
Plt Count 138 10^3/uL (130-400) 08/19/23 04:30
Sodium 132 mmol/L (135-145) L 08/19/23 04:30
Potassium 3.7 mmol/L (3.5-5.1) 08/19/23 04:30
Chloride 99 mmol/L (98-107) 08/19/23 04:30
Carbon Dioxide 26 mmol/L (22-30) 08/19/23 04:30
BUN 34 mg/dl (9-20) H 08/19/23 04:30
Creatinine 1.5 mg/dL (0.7-1.3) H 08/19/23 04:30
eGFR 50.40 08/19/23 04:30
Glucose 115 mg/dl (70-99) H 08/19/23 04:30
Calcium 8.5 mg/dl (8.4-10.2) 08/19/23 04:30
Phosphorus 3.9 mg/dl (2.5-4.5) 08/14/23 04:05
Albumin 4.1 g/dl (3.5-5.0) 08/14/23 04:05
Physical Exam
-
Vital Signs:
Vital Signs
Temp Pulse Resp BP Pulse Ox
98.4 F 70 16 127/66 95
08/19/23 07:40 08/19/23 10:47 08/19/23 07:40 08/19/23 10:47 08/19/23 08:00
Cardiovascular:: Regular rate and rhythm
Respiratory:: Bilateral: Coarse
Lung Excursion:: Normal
Abdomen:: Nontender and Soft
Bowel Sounds:: Normal
Extremity Edema:: +1: Bilateral:
--- NOTE | 2023-08-19 12:05 | PTCARENOTE ---
VS obtained, assessment stable. KAY Baez d/c'd as ordered, patient tolerated well. Perusing menu for lunch order.
[2023-08-19] MEDS: NSS IV (12:07)
--- NOTE | 2023-08-19 14:30 | W.DCSUMMARY ---
Discharge Summary
Discharge Data
Date of Admission: 08/11/23
Date of Discharge: 08/19/23
Total time spent discharging patient (in min): 45
-
Pending Results: No
Hospital Course
Primary care physician:
None
Outpatient commissary production supervisor:
Brigette
Inpatient consultants:
DCA, linotype worker, nephrology
Procedures:
1. Bio-bentall root replacement w/ #25 KONECT RESILIA Aortic Valve Conduit
Primary Diagnosis:
1. Severe aortic insuffiency
Secondary Diagnoses:
1. Cardiomegaly
2. Chronic Kidney disease
3. Acute on Chronic heart failure
HPI: 68 y/o male presented to [facility] with heart failure excerbation and was found to have severe AI. He was transferred to for CT surgery with Dr. Pulido.
Hospital course: Patient was initially transferred from [facility] on 08/10. 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 He
returned to the CVICU on Precedex, insulin, dobutamine, epinephrine, and Levophed infusions. Patient's Levophed was weaned off Precedex was weaned off and patient was extubated by 2154. Epi and dobutamine remained. On 08/15 postoperative day #1
patient received 1 unit of packed red blood cells for hemoglobin of 8.6. Lasix was given with adequate response. Dobutamine and epinephrine were weaned off and beta-blockers were placed on hold. Patient was D lined and Arriaga catheter was removed.
On 08/16 postoperative day #2 creatinine esme from 1.6-2.4, Arriaga catheter was replaced and dobutamine was restarted. Nephrology was consulted for an NERY. Repeat echocardiogram showed an EF of 20 to 30% and he was redosed with 40 mg of IV Lasix.
On 08/17 postoperative day #3, dobutamine was weaned off slowly throughout the day and he was given 1 unit of packed red blood slowly. He was diuresed with 60 mg of IV Lasix in the morning and redosed with 40 in the afternoon. Mixed venous remained
stable. On 08/18, postoperative day #4 patient was started on low-dose metoprolol for blood pressure and heart rate control. Patient's creatinine remained stable. 2 view chest x-ray remained stable. Repeat echocardiogram showed an improvement in
LVEF. Patient will be discharged home with low-dose Lasix and metoprolol.
Home medication changes:
See below
Discharge Plan
-
Patient Disposition: Home (Routine Discharge)
Discharge Diagnosis/Procedures: AVR
Condition: Fair
Diet: Low Cholesterol and Low Sodium
Activity: No strenuous activity
Driving Restrictions: Not until seen by your Dr
Bathing Restrictions: OK to Shower
Other Services: Cardiac Rehab
Specialty Instructions: Weigh Daily- Call MD for wt gain/loss 3 lbs overnight/5 lbs in 1 week
Activity Restrictions/Additional Instructions:
Please call [facility] Phase 2 cardiac rehab to schedule your first visit at [phone] upon Discharge to home
ACTIVITY:
-No strenuous activity: no heavy lifting, pushing, pulling anything over 15 pounds for one month
-continue to use stairs as tolerated
DRIVING RESTRICTIONS:
-No driving for one month or until approved by your surgeon
WOUND CARE:
-Shower daily. Use soap & water.
-No lotions, creams or powders on incision area.
DIET:
-continue a low fat/low cholesterol diet.
-IF you are diabetic, continue carb controlled diet.
CARDIAC REHAB:
-Please make appointment to start in 5-6 weeks with your local hospital program. (See Cardiac Rehabilitation Discharge Booklet).
SPECIALTY INSTRUCTIONS:
-Weigh yourself daily. Call your physician for any weight gain/loss of 3 lbs overnight or 5 lbs in one week.
-REPORT any clicking noise or uneven appearance of your sternum to your surgeon immediately.
-If you smoke, you are instructed to quit. The [place] smoking hotline phone number is [phone]
Referrals:
CT Transitional Care Nurse [Outside] - in one to two days (The Cardiothoracic Transitional Care Nurse will call you to set up a visit in 1-2 days.)
Gal Castelan MD [Non-Admitting Privileges] - 09/27/23 2:10 pm
Franck Pulido MD [Active] - 09/13/23 2:00 pm
UNKNOWN,NO INTERVIEW [Family Provider] -
Prescriptions:
New
acetaminophen 325 mg Tablet
650 mg PO Q4HPRN PRN (Reason: mild pain,headache,temp >101F ) Qty: 0 0RF
aspirin [Children's Aspirin] 81 mg Tablet,Chewable
81 mg PO DAILY Qty: 0 0RF
metoprolol succinate 25 mg Tablet Extended Release 24 Hr
12.5 mg PO DAILY Qty: 60 1RF
furosemide [Lasix] 20 mg tablet
20 mg PO DAILY Qty: 7 0RF
Rx Instructions:
Take daily for 7 days, then stop
Discharge Orders:
Discharge Patient (As Directed); Ordered 08/19/23
Ordered By: Arlene So
Care Plan Goals
Care Plan Goals:
Problem: Readiness for enhanced knowledge related to diagnosis and treatment plan
Goal: Understand your diagnosis and treatment plan needs, including medications if applicable.
Instructions: Know your diagnosis, underlying causes and treatment plan options, including medications if applicable. Consult with your health care team to learn about your diagnosis and treatment plan, including medications if applicable.
Discharge Date and Time
Print Language: OCCITAN
--- NOTE | 2023-08-19 15:26 | PTCARENOTE ---
Patient states he has five steps to enter home, then one floor living. Five stairs completed w/out difficulty. VS obtained, stable. Temporary pacing wire d/c'd by SHIMON Jewell w/this RN assist.
--- NOTE | 2023-08-19 16:03 | PTCARENOTE ---
Patient set up to shower, completed independently.
--- NOTE | 2023-08-19 16:12 | CM ---
CM following for DC planning needs.
Pt. for DC to home today.
Met w/ patient at bedside. He is prepared for DC and offers no concern/ needs.
Plan is for home w/ CT Transitional Care RN.
CM to follow.
--- NOTE | 2023-08-19 17:42 | PTCARENOTE ---
Discharge instructions thoroughly reviewed w/patient and spouse, all questions answered. Patient and all belongings transported to waiting vehicle for d/c home.
== END 2023-08-19 18:02 | disposition home or self-care (01) | DRG 219 ==
LOC: CVICU 08:25
PROVIDERS: Anesthesiology; Clinical Nurse Specialist Acute Care; Nurse Practitioner; Physician Assistant Medical; Thoracic Surgery (Cardiothoracic Vascular Surgery); ADMITTING PHYSICIAN Thoracic Surgery (Cardiothoracic Vascular Surgery); CONSULT PHYSICIAN Internal Medicine Cardiovascular Disease; OTHER PHYSICIAN Dentist Oral and Maxillofacial Surgery; OTHER PHYSICIAN Internal Medicine Critical Care Medicine; OTHER PHYSICIAN Specialist
PROC: 02R Heart and Great Vessels, Replacement (ICD-10-PCS; 2023-08-15)
PROC: B24BZZ4 Ultrasonography of Heart with Aorta, Transesophageal (ICD-10-PCS; 2023-08-15)
PROC: 5A1221Z Performance of Cardiac Output, Continuous (ICD-10-PCS; 2023-08-15)
DX: I71.21 Aneurysm of the ascending aorta, without rupture (principal); I50.23 Acute on chronic systolic (congestive) heart failure; D62 Acute posthemorrhagic anemia; I13.0 Hypertensive heart and chronic kidney disease with heart failure and stage 1 through stage 4 chronic kidney disease, or unspecified chronic kidney disease; I42.8 Other cardiomyopathies; Q23.1 Congenital insufficiency of aortic valve; I50.1 Left ventricular failure, unspecified; E87.1 Hypo-osmolality and hyponatremia; Q25.43 Congenital aneurysm of aorta; D68.9 Coagulation defect, unspecified; N17.9 Acute kidney failure, unspecified; J98.11 Atelectasis; I73.9 Peripheral vascular disease, unspecified; I70.8 Atherosclerosis of other arteries; K02.9 Dental caries, unspecified; D69.59 Other secondary thrombocytopenia; E86.1 Hypovolemia; N18.32 Chronic kidney disease, stage 3b; Z86.16 Personal history of COVID-19; Z87.891 Personal history of nicotine dependence
CPT/HCPCS: 88305; 88311; 93308; 70355; 71045; 71046; 80048; 80053; 80069; 81003; 82248; 82330; 82565; 82570; 82805; 82810; 82947; 82962; 83036; 83735; 84132; 84300; 84302; 84520; 85014; 85018; 85025; 85027; 85049; 85610; 85730; 86850; 86900; 86901; 86920; 93005; 93306; 93312; 93320; 93321; 93325; 93880; 94002; J7189; P9016; P9017; P9045; P9073

== ENCOUNTER → 2023-09-13 14:39 | Outpatient (REF) | payer MEDICARE, SELFPAY | LOC: RCS 14:39 | PROVIDERS: ATTENDING PHYSICIAN Thoracic Surgery (Cardiothoracic Vascular Surgery) | DX: I49.9 Cardiac arrhythmia, unspecified (principal) | CPT/HCPCS: 93005 ==